=== PATIENT | male | born 1940 | race Caucasian/White ===

== ENCOUNTER 2023-11-18 08:05 | Inpatient (IN) | payer MEDICARE, OTHER ==
[~2023-11-18] VITALS: Ht 193 cm; Wt 62.6 kg
[~2023-11-18 08:05] MED LIST: PRED10TA PO
[2023-11-18] MEDS: methylPREDNISolone SOD SUCC 125 MG/2ML VIAL IV ONE (08:17)
[2023-11-18] MEDS ORDERED: methylPREDNISolone SOD SUCC 125 MG/2ML VIAL ONE (08:17)
--- NOTE | 2023-11-18 08:19 | NUR ---
IV RAC #18G S/L BLOOD COLLECTED AND SENT TO LAB
--- NOTE | 2023-11-18 08:20 | NUR ---
COVID AND INFLUENZA COLLECTED AND SENT TO LAB
--- NOTE | 2023-11-18 08:20 | NUR ---
RT AT PT'S BEDSIDE FOR BREATHING TX AND ABG
--- NOTE | 2023-11-18 08:29 | NUR ---
ADMISSION MOVE SHEET SUBMITTED
[2023-11-18] MEDS ORDERED: IPRATROPIUM NEB FS 0.5 MG/2.5 ML AMPUL.NEB ONE (08:33)
[2023-11-18] MEDS ORDERED: ALBUTEROL FS 2.5 MG/3 ML VIAL.NEB ONE (08:33)
[2023-11-18 08:46] LABS: BASOPHILS % (AUTO) 0.1 % (0.0-2.0); EOSINOPHILS % (AUTO) 0.2 % (0.0-6.0); HEMATOCRIT 30 % (39-51); HEMOGLOBIN 9.9 g/dL (13.5-17.5); LYMPHOCYTES # (AUTO) 0.6 K/uL (0.8-4.8); LYMPHOCYTES % (AUTO) 6.8 % (20.0-44.0); MEAN CORPUSCULAR HEMOGLOBIN 30 PG (26.0-33.0); MEAN CORPUSCULAR HGB CONC 33 g/dl (31.0-36.0); MEAN CORPUSCULAR VOLUME 89 fL (80-96); MONOCYTES # (AUTO) 0.3 K/uL (0.1-1.30); MONOCYTES % (AUTO) 3.9 % (2.0-12.0); NEUTROPHILS # (AUTO) 7.5 K/uL (1.8-8.9); PLATELET COUNT (AUTO) 215 K/uL (150-450); RED BLOOD CELL COUNT(AUTO) 3.36 MIL/uL (4.5-6.0); RED CELL DISTRIBUTION WIDTH 16.2 % (11.5-15.0); WHITE BLOOD COUNT (AUTO) 8.4 K/uL (4.3-11.0)
--- NOTE | 2023-11-18 09:08 | NUR ---
called nurse sup for bed assignment
[2023-11-18 09:09] LABS: CALCIUM, SERUM 7.8 mg/dL (8.5-10.1); CARBON DIOXIDE 30 mmol/L (21-32); CHLORIDE 105 mmol/L (98-107); CREATININE 0.8 mg/dL (0.6-1.3); GLUCOSE 121 mg/dL (74-106); POTASSIUM 4.1 mmol/L (3.5-5.1); SODIUM SERUM 140 mmol/L (136-145); UREA NITROGEN, BLOOD 19 mg/dL (7-18)
[2023-11-18] MEDS: IPRATROPIUM NEB FS 0.5 MG/2.5 ML AMPUL.NEB NEB ONE (09:10)
[2023-11-18] MEDS: ALBUTEROL FS 2.5 MG/3 ML VIAL.NEB CONTNEB ONE (09:10)
[2023-11-18 09:14] LABS: ALANINE AMINOTRANSFERASE 87 U/L (12-78); ALBUMIN 2.5 g/dL (3.4-5.0); ALKALINE PHOSPHATASE 94 U/L (46-116); ASPARTATE AMINOTRANSFERASE 34 U/L (15-37); BILIRUBIN,DIRECT 0.5 mg/dL (0.0-0.2); BILIRUBIN,TOTAL 1.4 mg/dL (0.2-1.0); TOTAL PROTEIN, SERUM 5.4 g/dL (6.4-8.2)
--- NOTE | 2023-11-18 09:35 | NUR ---
Lab called, pt is COVID positive. aware
[2023-11-18 10:02] LABS: ABG BASE EXCESS -1.2 mmol/L (-2.0-2.0); ABG OXYGEN SATURATION 82.6 % (92.0-98.5); ABG PCO2 33.4 mmHg (35.0-45.0); ABG PH 7.444 (7.340-7.440); ABG PO2 48.4 mmHg (75.0-100.0); ABG TOTAL HEMOGLOBIN 10.2 G/dL (14.0-18.0); COHb 0.3 % (0.5-1.5); MetHb 0.3 % (0.0-1.5); O2Hb 82.1 % (94.0-97.0); SITE, ABG Right Radial; VENT MODE, BG ROOM AIR
[2023-11-18] MEDS ORDERED: CEFTRIAXONE 1GM BAG (ER ONLY) 50 ML IV ONE (10:05)
[2023-11-18] MEDS: CEFTRIAXONE 1GM BAG (ER ONLY) 50 ML IV ONE (10:07)
[2023-11-18] MEDS: AZITHROMYCIN 500 MG in IV D5W 250 ML IV ONE (10:15)
[2023-11-18] MEDS ORDERED: POVI3780 TP (10:16)
[2023-11-18] MEDS ORDERED: NITR0.4T48 SL (10:16)
[2023-11-18] MEDS ORDERED: IPRA3AMP23 IH (10:16)
[2023-11-18] MEDS ORDERED: ONDA4TAB5 PO (10:16)
[2023-11-18] MEDS ORDERED: RIVA10TA PO (10:16)
[2023-11-18] MEDS ORDERED: CLOP75TA15 PO (10:16)
[2023-11-18] MEDS ORDERED: ZINC1CAP2 PO (10:16)
[2023-11-18] MEDS ORDERED: METO25TA4 PO (10:16)
[2023-11-18] MEDS ORDERED: ACET325T53 PO ×2 (10:16)
[2023-11-18] MEDS ORDERED: MAGN400O6 PO (10:16)
[2023-11-18] MEDS ORDERED: TRAZ-182 PO (10:16)
[2023-11-18] MEDS ORDERED: COLL30OI TP (10:16)
[2023-11-18] MEDS ORDERED: POLY17PO4 PO (10:16)
[2023-11-18] MEDS ORDERED: LEVA1.2524 IH (10:16)
[2023-11-18] MEDS ORDERED: BISA10SU11 RC (10:16)
[2023-11-18] MEDS ORDERED: ASCO-352 PO (10:16)
[2023-11-18] MEDS ORDERED: FLUT1BLS6 IH (10:16)
[2023-11-18] MEDS ORDERED: MULT-213 PO (10:16)
[2023-11-18] MEDS ORDERED: GUAI5LIQ10 PO (10:16)
[2023-11-18] MEDS ORDERED: TAMS-12 PO (10:16)
[2023-11-18] MEDS ORDERED: DILT-1 PO (10:16)
[2023-11-18] MEDS ORDERED: ASPI-1420 PO (10:16)
[2023-11-18] MEDS ORDERED: ATOR40TA PO (10:16)
--- NOTE | 2023-11-18 10:30 | NUR ---
STARTED ROCEPHIN AT 1007, STOP TIME 1037
--- NOTE | 2023-11-18 10:49 | NUR ---
BED 107; ADMITTING AWARE
--- NOTE | 2023-11-18 11:10 | NUR ---
REPORT GIVEN TO FORREST FUNES
--- NOTE | 2023-11-18 12:01 | NUR ---
REHABILITATION INSPECTOR NOTES RECEIVED PT FROM E.R. STAFF VIA RENE, PT IS AWAKE, ALERT AND ORIENTED, ABLE TO MAKE NEEDS KNOWN, PLACED ON O2 AT 5LPM VIA N/C, WITH O2 SAT OF 92%, NO COMPLAINT OF PAIN, ASSISTED TO BED, MADE COMFORTABLE, ROOM SET UP ORIENTATION PROVIDED TO PT, VERBALIZED UNDERSTANDING, ISOLATION PRECAUTIONS OBSERVED, NOTED WITH PRODUCTIVE COUGH, KEPT HOB ELEVATED, DENIES SOB AT THIS TIME, KEPT AUTOMATIC STEEL TIE ADJUSTER BED, AWAITING FURTER ORDERS, VITALS TAKEN AND RECORDED.
[2023-11-18 12:03] VITALS: BP 110/81; TEMP 98.4; O2SAT 92
--- NOTE | 2023-11-18 12:49 | NUR ---
DOUGHNUT MACHINE OPERATOR NOTES PT REFUSED SKIN ASSESSMENT AND PHOTOS, PT HAS POLST WITH DNR/DNI, PT STATES THAT IS HIS WISHES, DR. GILLIAM INFORMED, CODE STATUS ORDERED, PT IS AFIB WITH OCCASIONAL PVC'S ON THE TELE MONITOR.
[2023-11-18] MEDS ORDERED: TRAZODONE 50 MG TABLET PO PRN (15:30)
[2023-11-18] MEDS ORDERED: ONDANSETRON HCL/PF 4 MG/2 ML VIAL IVP PRN (15:30)
[2023-11-18] MEDS: FUROSEMIDE 40 MG/4 ML VIAL IV SCH (17:20)
[2023-11-18] MEDS: dexaMETHasone SOD PHOSPHATE 10 MG/ML VIAL IV SCH (17:20)
[2023-11-18] MEDS: LEVOFLOXACIN 750 MG /D5W 150ML 150 ML IV SCH (17:21)
[2023-11-18] MEDS: METOPROLOL SUCCINATE 25 MG TAB.SR.24H PO SCH (17:21)
[2023-11-18] MEDS: RIVAROXABAN 10 MG TABLET PO SCH (17:22)
[2023-11-18] MEDS: AZITHROMYCIN 250 MG TABLET PO SCH (18:02)
[2023-11-18] MEDS: LEVALBUTEROL HCL NEB 1.25 MG/0.5 ML VIAL.NEB IH SCH (19:30)
[2023-11-18] MEDS: IPRATROPIUM NEB FS 0.5 MG/2.5 ML AMPUL.NEB NEB SCH (19:30)
--- NOTE | 2023-11-18 20:00 | NUR ---
RN OPENING NOTE RECEIVED PT AWAKE IN BED, A/O X3. ABLE TO VERBALIZED HIS NEEDS. ON O2 VIA NC 3LPM, WITH O2 SAT OF 96%, NO COMPLAINT OF PAIN, CONTINUE ISOLATION PRECAUTIONS. NOTED WITH PRODUCTIVE COUGH, KEPT HOB ELEVATED, NO RESPIRATORY DISTRESS NOTED, KEPT BUSINESS RULES DEVELOPER BED. SAFETY MEASURES ARE IMPLEMENTED PER UNIT PROTOCOL. WILL CONTINUE PLAN OF CARE.
--- NOTE | 2023-11-18 20:18 | NUR ---
RT NOTE TX NOT GIVEN DUE TO POSITIVE PCR RESULTS. NO SOB NOTED AT THIS TIME. RN NOTIFIED.
[2023-11-18] MEDS: REMDESIVIR (CHARGED) 200 MG, *LOADING DOSE 1 EA in IV NS 0.9% 210 ML IV ONE (21:01)
[2023-11-18] MEDS: ATORVASTATIN 40 MG TABLET PO SCH (21:04)
--- NOTE | 2023-11-19 | NUR ---
TEST SKEIN WINDER NOTE PATIENT BP CHECKED 3X 86/53, 83/59 AND 80/59 O2 SAT 96% REPORTED TO HALIE KASPER WITH ORDERS OF IVF NS 500CC BOLUS X 1, ORDERS MADE AND CARRIED OUT.
[2023-11-19] MEDS: IV NS 0.9% 500 ML IV ONE (01:57)
[2023-11-19 05:52] VITALS: BP 94/55; TEMP 97.5; O2SAT 96
--- NOTE | 2023-11-19 06:53 | NUR ---
RN CLOSING NOTE PT. IN BED, A/O X3.ABLE TO VERBALIZED HIS NEEDS. ON O2 VIA NC 3LPM, WITH O2 SAT OF 96%, NO COMPLAINT OF PAIN, CONTINUE ISOLATION PRECAUTIONS.NOTED WITH PRODUCTIVE COUGH, KEPT HOB ELEVATED, NO RESPIRATORY DISTRESS NOTED, KEPT HOME HEALTH SPEECH THERAPIST BED. SAFETY MEASURES IMPLEMENTED PER UNIT PROTOCOL. ALL NEEDS ATTENDED. ALL DUE MEDS GIVEN PER DOCTORS ORDER. ENDORSED TO INCOMING RN FOR CONTINUE PLAN OF CARE.
--- NOTE | 2023-11-19 07:08 | NUR ---
RN OPENING NOTE RECEIVED PT IN BED, A/O X3. ABLE TO MAKE NEEDS KNOWN. ON 3LPM O2 VIA NC, TOLERATING WELL, NO S/S OF SOB NOTED. ON TELE MONITOR CURRENTLY READING AFIB, HR 69 BPM. IV ACCESS ON RAC 20G, PATENT AND INTACT, SL. PT CONTINUED ON COVID ISOLATION PRECAUTIONS. SAFETY MEASURES IMPLEMENTED, BED IN LOWEST LOCKED POSITION, BED ALARM ON, HOB ELEVATED, SIDE RAILS UP, CALL LIGHT WITHIN REACH. WILL CONTINUE PLAN OF CARE.
[2023-11-19 07:29] LABS: BASOPHILS % (AUTO) 0.2 % (0.0-2.0); HEMATOCRIT 24 % (39-51); HEMOGLOBIN 8.3 g/dL (13.5-17.5); LYMPHOCYTES # (AUTO) 0.3 K/uL (0.8-4.8); LYMPHOCYTES % (AUTO) 4.1 % (20.0-44.0); MEAN CORPUSCULAR HEMOGLOBIN 30 PG (26.0-33.0); MEAN CORPUSCULAR HGB CONC 35 g/dl (31.0-36.0); MEAN CORPUSCULAR VOLUME 88 fL (80-96); MONOCYTES # (AUTO) 0.2 K/uL (0.1-1.30); NEUTROPHILS # (AUTO) 6.1 K/uL (1.8-8.9); NEUTROPHILS % (AUTO) 92.7 % (43.0-81.0); PLATELET COUNT (AUTO) 164 K/uL (150-450); RED BLOOD CELL COUNT(AUTO) 2.74 MIL/uL (4.5-6.0); RED CELL DISTRIBUTION WIDTH 16.4 % (11.5-15.0); WHITE BLOOD COUNT (AUTO) 6.6 K/uL (4.3-11.0)
[2023-11-19 07:42] LABS: INR 1.5 (0.91-1.10); PARTIAL THROMBOPLASTIN TIME 36.8 SEC (24.3-34.3); PROTHROMBIN TIME 15.5 SECS (9.2-11.1)
[2023-11-19 08:00] VITALS: BP 105/63; TEMP 97.3; O2SAT 97
[2023-11-19 08:02] LABS: ALBUMIN 2.2 g/dL (3.4-5.0); BILIRUBIN,DIRECT 0.4 mg/dL (0.0-0.2); BILIRUBIN,TOTAL 1.1 mg/dL (0.2-1.0); CALCIUM, SERUM 7.6 mg/dL (8.5-10.1); CARBON DIOXIDE 29 mmol/L (21-32); CHLORIDE 104 mmol/L (98-107); CREATININE 0.9 mg/dL (0.6-1.3); GLUCOSE 93 mg/dL (74-106); MAGNESIUM 1.8 mg/dL (1.8-2.4); PHOSPHORUS 3.2 mg/dL (2.5-4.9); POTASSIUM 3.2 mmol/L (3.5-5.1); SODIUM SERUM 141 mmol/L (136-145); TOTAL PROTEIN, SERUM 4.8 g/dL (6.4-8.2); UREA NITROGEN, BLOOD 19 mg/dL (7-18)
[2023-11-19] MEDS: ASPIRIN EC 81 MG TABLET.DR PO SCH (08:44)
[2023-11-19] MEDS: ZINC SULFATE 220 MG CAPSULE PO SCH (08:44)
[2023-11-19] MEDS: ASCORBIC ACID 500 MG TABLET PO SCH (08:44)
[2023-11-19] MEDS: TAMSULOSIN 0.4 MG CAP.SR.24H PO SCH (08:44)
[2023-11-19] MEDS: CLOPIDOGREL BISULFATE 75 MG TABLET PO SCH (08:44)
[2023-11-19] MEDS: MULTIVITAMIN/LUTEIN/MINERALS 1 TAB PO SCH (08:44)
[2023-11-19] MEDS: DILTIAZEM HCL CD 120 MG PO SCH (08:45)
[2023-11-19] MEDS: THERAHONEY GEL 1.5 OZ TUBE TP SCH (08:45)
[2023-11-19] MEDS ORDERED: Medication Not On Formulary EA (Fluticasone/Umeclidin/Vilanter (Trelegy Ellipta 100-62.5 IH SCH (09:00)
[2023-11-19] MEDS: POTASSIUM CL. PREMIX PERIPHER. 50 ML IV SCH (10:55)
[2023-11-19 12:00] VITALS: BP 104/64; TEMP 97.5; O2SAT 96
[2023-11-19] MEDS: ENSURE ENLIVE CHOC 237 ML CAN PO SCH (12:12)
[2023-11-19] MEDS: IPRATROPIUM BROMIDE 14 GM INHALER (or 12.9 GM) IH SCH (14:39)
[2023-11-19 16:00] VITALS: BP 106/66; TEMP 97.7; O2SAT 98
[2023-11-19] MEDS: CEFTRIAXONE 2 G in IV D5W 100 ML IV SCH (16:24)
[2023-11-19] MEDS ORDERED: LEVOFLOXACIN 500 MG /D5W 100ML 500 MG in PREMIX 1 EA IV SCH (17:00)
--- NOTE | 2023-11-19 17:00 | NUR ---
RN NOTE PT REFUSED TO BE CLEANED.
[2023-11-19] MEDS ORDERED: LEVOFLOXACIN 250 MG /D5W 50 ML 250 MG in PREMIX 1 EA IV SCH (18:00)
--- NOTE | 2023-11-19 18:42 | NUR ---
RN CLOSING NOTES PT IN BED, A/O X3. ABLE TO MAKE NEEDS KNOWN. ON 3LPM O2 VIA NC, TOLERATING WELL, NO S/S OF SOB NOTED. ON TELE MONITOR CURRENTLY READING AFIB, HR 98 BPM. IV ACCESS ON RAC 20G, PATENT AND INTACT, SL. PT CONTINUED ON COVID ISOLATION PRECAUTIONS. SAFETY MEASURES MAINTAINED, BED IN LOWEST LOCKED POSITION, BED ALARM ON, HOB ELEVATED, SIDE RAILS UP, CALL LIGHT WITHIN REACH. ALL MEDS GIVEN ORDERED, ALL NEEDS ATTENDED TOO. WILL ENDORSE TO ONCOMING SHIFT FOR BABS.
[2023-11-19 20:00] VITALS: BP 94/64; TEMP 97; O2SAT 99
--- NOTE | 2023-11-19 20:02 | NUR ---
CIGAR PATCHER OPENING NOTES RECEIVED PT IN BED, A/O X3. ABLE TO VERBALIZED HIS NEEDS. ON 3LPM O2 VIA NC, TOLERATING WELL, NO RESPIRATORY DISTRESS NOTED. ON TELE MONITOR CURRENTLY READING AFIB, HR 90'S BPM. IV ACCESS ON RAC 20G, PATENT AND INTACT, SL. PT CONTINUED ON COVID ISOLATION PRECAUTIONS. TRY TO CONVINCE PT. ON TAKING PHOTOS ON AFFECTED AREAS AND BE ABLE TO REFER TO WOUND CARE CONSULT, ONCE DONE. SAFETY MEASURES IMPLEMENTED PER UNIT PROTOCOL.WILL CONTINUE PLAN OF CARE
--- NOTE | 2023-11-19 20:18 | NUR ---
Scheduled Neb tx not given at this time due to postive Covid PCR result. RN aware
[2023-11-19] MEDS: REMDESIVIR (CHARGED) 100 MG in IV NS 0.9% 80 ML IV SCH (20:51)
[2023-11-20] VITALS: BP 98/61; TEMP 97.7; O2SAT 96
[2023-11-20 04:00] VITALS: BP 104/72; TEMP 97.3; O2SAT 98
[2023-11-20 07:02] LABS: HEMATOCRIT 26 % (39-51); LYMPHOCYTES # (AUTO) 0.7 K/uL (0.8-4.8); LYMPHOCYTES % (AUTO) 6.1 % (20.0-44.0); MEAN CORPUSCULAR HEMOGLOBIN 31 PG (26.0-33.0); MEAN CORPUSCULAR HGB CONC 35 g/dl (31.0-36.0); MEAN CORPUSCULAR VOLUME 89 fL (80-96); MONOCYTES # (AUTO) 0.4 K/uL (0.1-1.30); MONOCYTES % (AUTO) 3.9 % (2.0-12.0); NEUTROPHILS # (AUTO) 9.5 K/uL (1.8-8.9); PLATELET COUNT (AUTO) 171 K/uL (150-450); RED BLOOD CELL COUNT(AUTO) 2.94 MIL/uL (4.5-6.0); RED CELL DISTRIBUTION WIDTH 16.6 % (11.5-15.0); WHITE BLOOD COUNT (AUTO) 10.6 K/uL (4.3-11.0)
[2023-11-20 07:30] LABS: ALANINE AMINOTRANSFERASE 90 U/L (12-78); ALBUMIN 2.3 g/dL (3.4-5.0); ALKALINE PHOSPHATASE 85 U/L (46-116); ASPARTATE AMINOTRANSFERASE 44 U/L (15-37); BILIRUBIN,DIRECT 0.4 mg/dL (0.0-0.2); BILIRUBIN,TOTAL 0.9 mg/dL (0.2-1.0); CALCIUM, SERUM 7.9 mg/dL (8.5-10.1); CARBON DIOXIDE 32 mmol/L (21-32); CHLORIDE 104 mmol/L (98-107); CREATININE 0.9 mg/dL (0.6-1.3); GLUCOSE 95 mg/dL (74-106); POTASSIUM 3.6 mmol/L (3.5-5.1); SODIUM SERUM 140 mmol/L (136-145); UREA NITROGEN, BLOOD 23 mg/dL (7-18)
[2023-11-20 07:33] LABS: INR 1.51 (0.91-1.10); PARTIAL THROMBOPLASTIN TIME 36.6 SEC (24.3-34.3); PROTHROMBIN TIME 15.6 SECS (9.2-11.1)
--- NOTE | 2023-11-20 07:35 | NUR ---
RN NOTE REPORTED TO COMMERCIAL LINES ACCOUNT MANAGER CONTRETAS PT.COUGH OUT BLOOD 2CM. PER AMBROSE MONITOR VITAL SIGNS.
--- NOTE | 2023-11-20 07:35 | NUR ---
RN CLOSING NOTES RECEIVED PT IN BED, A/O X3. ABLE TO VERBALIZED HIS NEEDS. ON 3LPM O2 VIA NC, TOLERATING WELL, NO RESPIRATORY DISTRESS NOTED. ON TELE MONITOR CURRENTLY READING AFIB, HR 90'S BPM. IV ACCESS ON RAC 20G, PATENT AND INTACT, SL. PT CONTINUED ON COVID ISOLATION PRECAUTIONS. TRY TO CONVINCE PT. ON TAKING PHOTOS ON AFFECTED AREAS AND ABLE TO CONSULT WOUND CARE , ONCE DONE. SAFETY MEASURES IMPLEMENTED PER UNIT PROTOCOL.WILL CONTINUE PLAN OF CARE
--- NOTE | 2023-11-20 07:44 | NUR ---
BUS VAN DRIVER OPENING NOTE Recieved patient in bed with no s/s of distress noted, patient noted on isolation positive for covid. Patient noted with NC currently running at 6LPM with no SOB noted at this time or respiratory distress. Patient is currently on tele monitor A-fib. Patient ntoed with IV on right AC 20G SL flushing well. He currently has all of his needs met no further concerns noted at this time.
--- NOTE | 2023-11-20 07:44 | NUR ---
PAPER CUTTER OPENING NOTE Received patient in bed with no s/s of distress noted, patient noted on isolation positive for covid. Patient noted with NC currently running at 6LPM with no SOB noted at this time or respiratory distress. Patient is currently on tele monitor A-fib. Patient noted with IV on right AC 20G SL flushing well. He currently has all of his needs met no further concerns noted at this time.
--- NOTE | 2023-11-20 07:57 | NUR ---
WOUND CARE CONSULT: REVIEWED CHART, NURSING DOCUMENTATION AND PHOTOS WHICH INDICATE SACRAL SCARRING WHICH EXTENDS TO BUTTOCKS WITH OPEN AREAS, LEFT ARM SKIN TEAR AND DRY SCAB WELL REDNESS/DISCOLORATION TO HEELS, ALL PRESENT ON ADMISSION. DR PULIDO CALLED FOR SURGICAL WOUND CONSULT. DISCUSSED SKIN PROTECTION WITH NURSING STAFF. MD IN AGREEMENT WITH PLAN OF CARE.
[2023-11-20 08:00] VITALS: BP 106/66; TEMP 97.5; O2SAT 97
[2023-11-20] MEDS: THERAHONEY GEL 1.5 OZ TUBE TP SCH (09:41)
--- NOTE | 2023-11-20 11:00 | NUR ---
FISH SMOKER NOTE Patient noted to have CT done today, was informed by CT staff patient will be done later in the day today unsure of what time.
[2023-11-20 12:00] VITALS: BP 101/59; TEMP 97.5; O2SAT 99
[2023-11-20 16:00] VITALS: BP 102/62; TEMP 97.4; O2SAT 96
--- NOTE | 2023-11-20 19:32 | NUR ---
CORN GROWER NOTE Patient is in bed with zero s/s of distress noted, all orders noted and carried out. No further concerns noted at this time all needs ahve been met. Endorsed to RN
--- NOTE | 2023-11-20 19:35 | NUR ---
BUSINESS PROCESS MANAGER OPENING NOTE RECEIVED PATIENT AWAKE IN BED, ALERT/ORIENTED X 3, PT ABLE TO MAKE NEEDS KNOWN. PATIENT STABLE ON 5 LPM OF O2 VIA NASAL CANNULA, NO S/S OF DISTRESS OR SOB NOTED, BREATHING EVEN AND UNLABORED. IV ACCESS ON RAC #20G, CANNULA HALF WAY OUT, APPEARS INFILTRATED, REDNESS ON SURROUNDING SKIN, REMOVED & PLACED ICE PACK, WILL INSERT NEW IV. PATIENT ON AIRBORNE PRECAUTIONS FOR COVID. SAFETY MEASURES IN PLACE: CALL LIGHT AND TABLE WITHIN REACH, SIDE RAILS UP X 3, BED LOCKED IN LOWEST POSITION, HOB ELEVATED, BED ALARM ON. WILL CONTINUE PLAN OF CARE
[2023-11-20 20:00] VITALS: BP 93/60; TEMP 97.5; O2SAT 96
--- NOTE | 2023-11-20 20:00 | NUR ---
BOTTOM CEMENTER NOTE PATIENT NOTED WITH A LOT OF BLEEDING ON RAC WHERE IV WAS REMOVED, GAUZE AND PRESSURE APPLIED, WRAPPED WITH KERLIX, WILL CONTINUE TO MONITOR
[2023-11-21] VITALS (7 sets, daily range): BP systolic 92–120; BP diastolic 60–74; TEMP 97.5–97.8; O2SAT 92–100
--- NOTE | 2023-11-21 03:30 | NUR ---
TANBARK LABORER NOTE SPUTUM COLLECTED FOR CULTURE, CALLED LAB FOR PICKUP
--- NOTE | 2023-11-21 06:30 | NUR ---
OFFICE NURSE NOTE PATIENT REFUSED AM LABS, LAB WILL TRY AGAIN LATER
--- NOTE | 2023-11-21 06:54 | NUR ---
AGILE JAVA DEVELOPER CLOSING NOTE PATIENT SLEEPING IN BED, ALERT/ORIENTED X 3, PT ABLE TO MAKE NEEDS KNOWN. PATIENT STABLE ON 5 LPM OF O2 VIA NASAL CANNULA WITH HUMIDIFIER, NO S/S OF DISTRESS OR SOB NOTED, BREATHING EVEN AND UNLABORED. PT ON TELE MONITOR READING A. FIB CONTROLLED, HR: 66. IV ACCESS ON HELADOI #22G INTACT AND SALINE LOCKED. NO SIGNIFICANT CHANGES THIS SHIFT, MEDICATIONS GIVEN ORDERED, PT NEEDS MET. SPUTUM CULTURES COLLECTED. WOUND PHOTOS TAKEN AND PLACED IN CHART, WOUND CARE DONE THIS AM, BILATERAL FEET FLOATED WITH PILLOW. SAFETY MEASURES IN PLACE: CALL LIGHT AND TABLE WITHIN REACH, SIDE RAILS UP X 3, BED LOCKED IN LOWEST POSITION, HOB ELEVATED, BED ALARM ON. WILL ENDORSE TO DAYSHIFT RN FOR CONTINUITY OF CARE
--- NOTE | 2023-11-21 07:30 | NUR ---
RN OPENING NOTE RECEIVED PATIENT AWAKE IN BED AND APPEARS COMFORTABLE, ALERT/ORIENTED X 3, PT ABLE TO MAKE NEEDS KNOWN. PATIENT STABLE ON 5 LPM OF O2 VIA NASAL CANNULA WITH HUMIDIFIER, NO S/S OF DISTRESS OR SOB NOTED, BREATHING EVEN AND UNLABORED. DENIES PAIN AT THIS TIME. PT ON TELE MONITOR READING A. FIB CONTROLLED, HR: 81. IV ACCESS ON HELADIO #22G INTACT AND SALINE LOCKED. SAFETY MEASURES IN PLACE: CALL LIGHT AND TABLE WITHIN REACH, SIDE RAILS UP X 3, BED LOCKED IN LOWEST POSITION, HOB ELEVATED, BED ALARM ON. WILL CONTINUE POC.
--- NOTE | 2023-11-21 08:55 | NUR ---
RN NOTE FELICIA NORRIS MADE AWARE OF FOLLOWING VITALS. BP; 118/67, HR OF 66 BPM. ADVISED TO CONTINUE TO ADMINISTER 25 MG OF METOPROLOL AND 120 MG OF DILTIAZEM. ADVISED TO RECHECK IN 2 HOURS. WILL CONTINUE POC.
--- NOTE | 2023-11-21 15:05 | NUR ---
RN NOTE PT LEFT UNIT VIA [facility] FOR SCHEDULED CT OF THE HEAD W/O CONTRAST. PT LEFT IN STABLE MEDICAL CONDITION. PT LEFT UNIT AT 1506.
--- NOTE | 2023-11-21 15:45 | NUR ---
RN NOTE PT RETURNED FROM SCHEDULED CT W/O CONTRAST. PT RETURNED MEDICALLY STABLE VIA GURNEY. RETURNED TO UNIT AT 1545. WILL CONTINUE POC
--- NOTE | 2023-11-21 18:11 | NUR ---
RN NOTE PT REPORTED TO THIS RN THAT HE HAS BLOOD TINGED SPUTUM. TAWANA CHE MADE AWARE. XARELTO HELD DUE TO BLOOD TINGED SPUTUM. WILL CONTINUE POC.
--- NOTE | 2023-11-21 18:30 | NUR ---
RN CLOSING NOTE PATIENT AWAKE IN BED AND APPEARS COMFORTABLE, ALERT/ORIENTED X 3, PT ABLE TO MAKE NEEDS KNOWN. PATIENT STABLE ON 4 LPM OF O2 VIA NASAL CANNULA WITH HUMIDIFIER, NO S/S OF DISTRESS OR SOB NOTED, BREATHING EVEN AND UNLABORED. DENIES PAIN AT THIS TIME. PT DOWNGRADED TO MED SURGE. IV ACCESS ON HELADIO #22G INTACT AND SALINE LOCKED. SAFETY MEASURES IN PLACE: CALL LIGHT AND TABLE WITHIN REACH, SIDE RAILS UP X 3, BED LOCKED IN LOWEST POSITION, HOB ELEVATED, BED ALARM ON. SCHEDULED MEDICATIONS ADMINSITERED. XARELTO HELD PER TAWANA ORDERS DUE TO BLOOD TINGED SPUTUM. WOUND CARE IMPLEMENTED. PT TURNED/REPOSITIONED PER PROTOCOL. ALL NEEDS ANTICIPATED/ATTENDED. WILL ENDORSE TO INCOMING RN FOR BABS.
--- NOTE | 2023-11-21 19:30 | NUR ---
RN MS OPENING NOTE RECEIVED PATIENT IN BED ASLEEP, EASILY AROUSE BY VERBAL/TACTILE STIMULI. ABLE TO MAKE NEEDS KNOWN. CURRENTLY ON 4 LPM O2 VIA NASAL CANNULA WITH HUMIDIFIER, NO S/S OF DISTRESS OR SOB NOTED, NONLABORED BREATHING NOTED. NO C/O PAIN AT THIS TIME. WITH IV ACCESS ON HELADIO #22G INTACT AND SALINE LOCKED. SAFETY MEASURES IN PLACE: CALL LIGHT AND TABLE WITHIN REACH, SIDE RAILS UP X 3, BED LOCKED IN LOWEST POSITION, HOB ELEVATED, BED ALARM ON. WILL CONTINUE PLAN OF CARE.
[2023-11-21] MEDS: ACETYLCYSTEINE 10% SOLN 400 MG/4 ML VIAL NEB SCH (23:27)
--- NOTE | 2023-11-22 04:30 | NUR ---
RN NOTES PATIENT REFUSED VS TO BE TAKEN. INFORMED PT OF THE BENEFITS OF TAKING VS, PT STILL REFUSED. CHARGE NURSE AWARE.
--- NOTE | 2023-11-22 06:56 | NUR ---
RN MS CLOSING NOTE PATIENT RESTING COMFORTABLY IN BED. AFEBRILE. TOLERATING 4 LPM O2 VIA NASAL CANNULA WITH HUMIDIFIER, NO S/S OF DISTRESS OR SOB NOTED, NONLABORED BREATHING NOTED. DENIES PAIN AT THIS TIME. INTACT IV ACCESS ON HELADIO #22G SALINE LOCKED. ALL DUE MEDS GIVEN ORDERED, TOLERATED WELL. KEPT BED LOCKED IN LOWEST POSITION, HOB ELEVATED, BED ALARM ON. CALL LIGHT AND TABLE WITHIN REACH, SIDE RAILS UP X 3, WILL ENDORSE TO INCOMING SHIFT RN.
[2023-11-22] MEDS: BUDESONIDE RESPULE INH 0.5 MG/2 ML AMPUL.NEB NEB SCH (07:05)
--- NOTE | 2023-11-22 07:30 | NUR ---
RN OPENING NOTE Received pt in bed awake, A/O X3 and able to make needs known. Continues on 02 @4lpm via n/c. Pt noted with productive cough. IV access to HELADIO #22g, SL. Isolation precautions implemented due to Covid-19. Safety measures in place. Bed in low and locked position. Call light in reach. Plan of care ongoing.
[2023-11-22 07:55] LABS: EOSINOPHILS # (AUTO) 0.1 K/uL (0.0-0.7); EOSINOPHILS % (AUTO) 0.9 % (0.0-6.0); HEMATOCRIT 24 % (39-51); HEMOGLOBIN 8.4 g/dL (13.5-17.5); LYMPHOCYTES # (AUTO) 0.6 K/uL (0.8-4.8); LYMPHOCYTES % (AUTO) 7.7 % (20.0-44.0); MEAN CORPUSCULAR HEMOGLOBIN 31 PG (26.0-33.0); MEAN CORPUSCULAR HGB CONC 35 g/dl (31.0-36.0); MEAN CORPUSCULAR VOLUME 90 fL (80-96); MONOCYTES # (AUTO) 0.3 K/uL (0.1-1.30); MONOCYTES % (AUTO) 3.5 % (2.0-12.0); NEUTROPHILS % (AUTO) 87.9 % (43.0-81.0); PLATELET COUNT (AUTO) 143 K/uL (150-450); RED BLOOD CELL COUNT(AUTO) 2.71 MIL/uL (4.5-6.0); RED CELL DISTRIBUTION WIDTH 18.1 % (11.5-15.0)
[2023-11-22 08:28] LABS: ALANINE AMINOTRANSFERASE 81 U/L (12-78); ALBUMIN 2.4 g/dL (3.4-5.0); ALKALINE PHOSPHATASE 99 U/L (46-116); ASPARTATE AMINOTRANSFERASE 26 U/L (15-37); BILIRUBIN,DIRECT 0.3 mg/dL (0.0-0.2); BILIRUBIN,TOTAL 0.8 mg/dL (0.2-1.0); CALCIUM, SERUM 7.8 mg/dL (8.5-10.1); CARBON DIOXIDE 28 mmol/L (21-32); CHLORIDE 103 mmol/L (98-107); CREATININE 0.8 mg/dL (0.6-1.3); GLUCOSE 84 mg/dL (74-106); POTASSIUM 3.5 mmol/L (3.5-5.1); SODIUM SERUM 139 mmol/L (136-145); TOTAL PROTEIN, SERUM 5.2 g/dL (6.4-8.2); UREA NITROGEN, BLOOD 24 mg/dL (7-18)
[2023-11-22 08:46] LABS: INR 1.25 (0.91-1.10); PARTIAL THROMBOPLASTIN TIME 30.7 SEC (24.3-34.3); PROTHROMBIN TIME 13.1 SECS (9.2-11.1)
[2023-11-22] MEDS: POTASSIUM CHLORIDE 20 MEQ TAB.PRT.SR PO SCH (10:23)
[2023-11-22] MEDS: FUROSEMIDE 40 MG/4 ML VIAL IV SCH (10:24)
[2023-11-22 12:00] VITALS: BP 102/72; TEMP 97.5; O2SAT 97
--- NOTE | 2023-11-22 18:59 | NUR ---
RN CLOSING NOTE Pt in bed awake, A/O X3 and able to make needs known. Continues on 02 @4lpm via n/c. All due meds administered and tolerated well. Isolation precautions implemented due to Covid-19. Safety measures in place. Bed in low and locked position. Call light in reach. Plan of care ongoing.
--- NOTE | 2023-11-22 19:25 | NUR ---
MS RN OPENING NOTE RECEIVED PT IN BED, A/O X 3. ON O2 VIA NC AT 4L, TOLERATING WELL. NO SIGNS OF DISTRESS NOTED. WITH IV ACCESS ON LEFT UPPER ARM G#22. ISOLATION PRECAUTION IMPLEMENTED DUE TO COVID-19. SAFETY MEASURES IMPLEMENTED: BED LOCKED AND IN LOWEST POSITION, BED ALARM ON. HOB ELEVATED, SIDE RAILS UP. CALL LIGHT AND TABLE WITHIN EASY REACH, WILL CONTINUE PLAN OF CARE.
--- NOTE | 2023-11-22 19:59 | NUR ---
RT NOTE TX NOT GIVEN DUE TO POSITIVE PCR RESULTS. NO SOB NOTED AT THIS TIME.
[2023-11-22 20:00] VITALS: BP 100/70; TEMP 97.8; O2SAT 100; O2SAT 96
[2023-11-23 04:00] VITALS: BP 101/74; TEMP 97.7; O2SAT 99
--- NOTE | 2023-11-23 06:39 | NUR ---
MS RN CLOSING NOTE PT IN BED, A/O X 3. ON O2 VIA NC AT 5L, TOLERATING WELL. NO SIGNS OF DISTRESS NOTED. WITH IV ACCESS ON LEFT UPPER ARM G#22. ON ISOLATION PRECAUTION DUE TO COVID-19. DUE MEDS GIVEN ORDERED. SAFETY MEASURES MAINTAINED: BED LOCKED AND IN LOWEST POSITION, BED ALARM ON, HOB ELEVATED, SIDE RAILS UP. CALL LIGHT AND TABLE WITHIN EASY REACH, WILL ENDORSE TO AM SHIFT NURSE FOR BABS.
--- NOTE | 2023-11-23 07:24 | NUR ---
RN OPENING NOTE RECEIVED PATIENT IN BED, A/O X3. ON O2 VIA NC AT 5L WITH HUMIDIFIER, TOLERATING WELL. NO SOB. NO SIGNS OF DISTRESS NOTED. WITH IV ACCESS ON LEFT UPPER ARM #22G, INTACT AND PATENT, SALINE LOCKED. ISOLATION PRECAUTION IMPLEMENTED DUE TO COVID-19. SAFETY MEASURES IN PLACE: BED LOCKED AND IN LOWEST POSITION, BED ALARM ON. HOB ELEVATED, SIDE RAILS UP. CALL LIGHT AND TABLE WITHIN EASY REACH, PLAN OF CARE ONGOING.
[2023-11-23 08:00] VITALS: BP 113/65; TEMP 97.5; O2SAT 99
[2023-11-23 08:44] LABS: HEMATOCRIT 22 % (39-51); HEMOGLOBIN 7.7 g/dL (13.5-17.5); LYMPHOCYTES # (AUTO) 0.3 K/uL (0.8-4.8); LYMPHOCYTES % (AUTO) 5.8 % (20.0-44.0); MEAN CORPUSCULAR HEMOGLOBIN 31 PG (26.0-33.0); MEAN CORPUSCULAR HGB CONC 35 g/dl (31.0-36.0); MEAN CORPUSCULAR VOLUME 89 fL (80-96); MONOCYTES # (AUTO) 0.2 K/uL (0.1-1.30); MONOCYTES % (AUTO) 4.2 % (2.0-12.0); NEUTROPHILS # (AUTO) 4.9 K/uL (1.8-8.9); PLATELET COUNT (AUTO) 116 K/uL (150-450); RED CELL DISTRIBUTION WIDTH 18.1 % (11.5-15.0); WHITE BLOOD COUNT (AUTO) 5.4 K/uL (4.3-11.0)
[2023-11-23 08:49] LABS: INR 1.93 (0.91-1.10); PARTIAL THROMBOPLASTIN TIME 46.1 SEC (24.3-34.3); PROTHROMBIN TIME 19.6 SECS (9.2-11.1)
[2023-11-23 08:57] LABS: ALANINE AMINOTRANSFERASE 62 U/L (12-78); ALBUMIN 2.3 g/dL (3.4-5.0); ALKALINE PHOSPHATASE 96 U/L (46-116); ASPARTATE AMINOTRANSFERASE 24 U/L (15-37); CALCIUM, SERUM 7.9 mg/dL (8.5-10.1); CARBON DIOXIDE 35 mmol/L (21-32); CHLORIDE 103 mmol/L (98-107); CREATININE 0.9 mg/dL (0.6-1.3); GLUCOSE 88 mg/dL (74-106); PHOSPHORUS 3.5 mg/dL (2.5-4.9); POTASSIUM 3.4 mmol/L (3.5-5.1); SODIUM SERUM 141 mmol/L (136-145); TOTAL PROTEIN, SERUM 4.7 g/dL (6.4-8.2); UREA NITROGEN, BLOOD 28 mg/dL (7-18)
[2023-11-23] MEDS: POTASSIUM CHLORIDE 20 MEQ TAB.PRT.SR PO SCH (10:53)
[2023-11-23 16:00] VITALS: BP 109/60; TEMP 97.5; O2SAT 98
--- NOTE | 2023-11-23 18:49 | NUR ---
RN CLOSING NOTE PATIENT IS IN BED, A/O X3. ON O2 VIA NC AT 3L WITH HUMIDIFIER, TOLERATING WELL. NO SOB. NO SIGNS OF DISTRESS NOTED AT THIS TIME. WITH IV ACCESS ON LEFT UPPER ARM #22G, INTACT AND PATENT, SALINE LOCKED. ISOLATION PRECAUTION IMPLEMENTED DUE TO COVID-19. DUE MEDS GIVEN. CARE RENDERED. NEEDS ATTENDED. SAFETY MEASURES MAINTAINED: BED LOCKED AND IN LOWEST POSITION, BED ALARM ON. HOB ELEVATED, SIDE RAILS UP. CALL LIGHT AND TABLE WITHIN EASY REACH. WILL ENDORSE TO AIR LIFT OPERATOR NURSE FOR CONTINUITY OF CARE.
--- NOTE | 2023-11-23 19:30 | NUR ---
RN OPENING NOTE RECEIVED PT IN BED. A/O X3. NO DISTRESS AND DISCOMFORT NOTED.ON 3L O2 VIA NC. NO SOB NOTED. ON COVID 19 PRECAUTIONS. IV ACCESS HELADIO 22G,SL. ALL SAFETY PRECAUTIONS IN PLACE: BED LOCKED AND IN LOWEST POSITION, SIDE RAILS UP X3, CALL LIGHT AND TABLE WITHIN REACH. WILL CONTINUE PLAN OF CARE.
[2023-11-23 20:00] VITALS: BP 90/53; TEMP 97.7; O2SAT 99
[2023-11-23 20:39] VITALS: O2SAT 97
--- NOTE | 2023-11-23 20:39 | NUR ---
RT NOTE TX NOT GIVEN DUE TO POSITIVE PCR RESULTS. NO SOB NOTED
[2023-11-24 04:00] VITALS: BP 96/59; TEMP 97.5; O2SAT 97
[2023-11-24 06:00] VITALS: BP 96/59; TEMP 97.5; O2SAT 97
--- NOTE | 2023-11-24 06:47 | NUR ---
RN CLOSING NOTE PT IN BED. A/O X3. NO DISTRESS AND DISCOMFORT NOTED.ON 3L O2 WITH HUMIDIFIER VIA NC. NO SOB NOTED. ON COVID 19 PRECAUTIONS. IV ACCESS HELADIO 22G,SL. 620 ML URINE OUTPUT.PT USES URINAL. BED LOCKED AND IN LOWEST POSITION, SIDE RAILS UP X3, CALL LIGHT AND TABLE WITHIN REACH. WILL ENDORSE TO NEXT SHIFT NURSE FOR BABS.
--- NOTE | 2023-11-24 07:03 | NUR ---
RT' PER [facility] POLICY INHALATION HHN TXS NOT GIVEN FOR POSITIVE PCR RESULTS. NO SOB NOTED.
--- NOTE | 2023-11-24 07:20 | NUR ---
SUPERINTENDENT TERMINAL OPENING NOTES Received patient asleep in bed. AOX3 with no complaints of pain or discomfort at this time. Pt is on isolation for COVID and is on 3L NC with humidifier and tolerating it well. IV access on HELADIO 22G patent and intact. HOB elevated to pts comfort. Siderails up at all times x3. Bed locked and at its lowest height for safety. Call light within reach. Care is ongoing.
[2023-11-24 08:57] LABS: CALCIUM, SERUM 8.4 mg/dL (8.5-10.1); CARBON DIOXIDE 33 mmol/L (21-32); CHLORIDE 103 mmol/L (98-107); GLUCOSE 130 mg/dL (74-106); SODIUM SERUM 141 mmol/L (136-145); UREA NITROGEN, BLOOD 38 mg/dL (7-18)
[2023-11-24] MEDS ORDERED: DEXA4TAB PO (11:29)
[2023-11-24 16:00] VITALS: BP 109/65; TEMP 97.9; O2SAT 96
--- NOTE | 2023-11-24 18:48 | NUR ---
HANDBAG OPERATOR CLOSING NOTES All due meds and tx given as ordered. Pt tolerated everything well. All needs attended to. HOB elevated to pts comfort. Siderails up at all times x3. Bed locked and at its lowest height for safety. Call light within reach. Will endorse to oncoming nurse.
--- NOTE | 2023-11-24 19:30 | NUR ---
RN OPENING NOTE RECEIVED PT IN BED. A/O X3. NO DISTRESS AND DISCOMFORT NOTED. ON 3L O2 VIA NC, TOLERATING WELL. NO SOB NOTED. HOB ELEVATED. IV ACCESS HELADIO 22G, INTACT. ALL SAFETY PRECAUTIONS IN PLACE: BED LOCKED AND IN LOWEST POSITION, SIDE RAILS UPX3, CALL LIGHT AND TABLE WITHIN REACH. WILL CONTINUE PLAN OF CARE.
[2023-11-24 20:00] VITALS: BP 124/51; TEMP 97.5; O2SAT 98
[2023-11-25] VITALS (23 sets, daily range): BP systolic 81–153; BP diastolic 52–96; TEMP 97.6–97.8; O2SAT 93–100
--- NOTE | 2023-11-25 06:48 | NUR ---
RN CLOSING NOTE PT IN BED. A/O X3. NO DISTRESS AND DISCOMFORT NOTED. ON 3L O2 VIA NC, TOLERATING WELL. NO SOB NOTED. HOB ELEVATED. IV ACCESS HELADIO 22G, INTACT. BED LOCKED AND IN LOWEST POSITION, SIDE RAILS UPX3, CALL LIGHT AND TABLE WITHIN REACH. WILL ENDORSE TO NEXT SHIFT NURSE FOR BABS.
--- NOTE | 2023-11-25 07:12 | NUR ---
CLINICAL QUALITY RN OPENING NOTES Received patient awake in bed. AOX3 with no complaints of pain or discomfort at this time. Pt is on isolation for COVID and is on 3L NC with humidifier and tolerating it well. IV access on HELADIO 22G patent and intact. HOB elevated to pts comfort. Siderails up at all times x3. Bed locked and at its lowest height for safety. Call light within reach. Care is ongoing.
--- NOTE | 2023-11-25 09:07 | NUR ---
MANAGER COMMUNITY DEVELOPMENT NOTES Attempted to call [facility] and [facility] for report but no answer.
--- NOTE | 2023-11-25 09:16 | NUR ---
WOOD BUCKER NOTES Patient cleared for discharge back to [facility] rehab. Report given to MARIN Naranjo.
[2023-11-25 10:14] LABS: CALCIUM, SERUM 8.4 mg/dL (8.5-10.1); CARBON DIOXIDE 29 mmol/L (21-32); CHLORIDE 104 mmol/L (98-107); CREATININE 0.8 mg/dL (0.6-1.3); GLUCOSE 90 mg/dL (74-106); POTASSIUM 3.8 mmol/L (3.5-5.1); SODIUM SERUM 141 mmol/L (136-145); UREA NITROGEN, BLOOD 34 mg/dL (7-18)
[2023-11-25 10:15] LABS: HEMATOCRIT 22 % (39-51); HEMOGLOBIN 7.6 g/dL (13.5-17.5); LYMPHOCYTES # (AUTO) 0.4 K/uL (0.8-4.8); LYMPHOCYTES % (AUTO) 5.6 % (20.0-44.0); MEAN CORPUSCULAR HEMOGLOBIN 31 PG (26.0-33.0); MEAN CORPUSCULAR HGB CONC 34 g/dl (31.0-36.0); MEAN CORPUSCULAR VOLUME 91 fL (80-96); MONOCYTES # (AUTO) 0.3 K/uL (0.1-1.30); MONOCYTES % (AUTO) 4.5 % (2.0-12.0); NEUTROPHILS # (AUTO) 6.6 K/uL (1.8-8.9); NEUTROPHILS % (AUTO) 89.9 % (43.0-81.0); PLATELET COUNT (AUTO) 108 K/uL (150-450); RED BLOOD CELL COUNT(AUTO) 2.45 MIL/uL (4.5-6.0); RED CELL DISTRIBUTION WIDTH 20.1 % (11.5-15.0); WHITE BLOOD COUNT (AUTO) 7.4 K/uL (4.3-11.0)
--- NOTE | 2023-11-25 11:49 | NUR ---
SPIRAL GEAR GENERATOR NOTES EMT at bedside and BP is 82/50. Dr. Quintana made aware with orders to give 500 ML NS bolus and 10mg midodrine one time and arrange for transportation to come back. Noted and carried out.
[2023-11-25] MEDS: MIDODRINE HCL (5MG) 5 MG TABLET PO ONE (12:06)
[2023-11-25] MEDS: IV NS 0.9% 500 ML IV ONE ×2 (12:06→17:05)
--- NOTE | 2023-11-25 12:47 | NUR ---
RT PER [facility] POLICY INHALATION HHN TXS NOT GIVEN FOR POSITIVE PCR RESULTS. NO SOB NOTED.
--- NOTE | 2023-11-25 13:30 | NUR ---
STRATEGIC ADVISOR NOTES Patient blood pressure checked and is 97/62.
--- NOTE | 2023-11-25 16:54 | NUR ---
GOLF CADDIE NOTES Patient BP is 81/52. Dr. Quintana made aware with orders to cancel discharge and give 1x bolus of 500 NS and start patient on midodrine 10MG TID. If patient doesn't improve transfer patient to ICU for levophed. Noted and carried out.
[2023-11-25] MEDS: MIDODRINE HCL (5MG) 5 MG TABLET PO SCH (17:05)
--- NOTE | 2023-11-25 18:20 | NUR ---
MILEAGE CLERK NOTES Patient transferred to ICU per Dr. Quintana orders. Report given to MARIN Perez.
[2023-11-25] MEDS: NOREPINEPHRINE 8 MG in IV D5W 242 ML IV PRN (18:42)
--- NOTE | 2023-11-25 19:30 | NUR ---
POLE RIVER NOTES Received patient in bed from MARIN Perez day shift .Patient AAOX3.DX: Respiratory Failure,COVID 19,PNA. Respiration even and unlabored.O2 6LNC saturation 100%.Denies pain or sob.AFIB 80's-110's.Patient on Levophed gtt at 0.1 mcg for BP support and will titrate accordingly.Patient turned and repositioned to comfort off loading pressure points.Contact Isolation protocol observed.Care plan implemented.Continue monitoring.
[2023-11-25] MEDS: VANCOMYCIN 1.5 GM in IV D5W 500 ML IV ONE (20:01)
[2023-11-25] MEDS: CELLULOSE,OXIDIZED 1 EACH EACH MC STA (20:32)
--- NOTE | 2023-11-25 20:35 | NUR ---
SWITCHBOARD WIRE WORKER HELPER NOTES Noted patient has moderate bleeding from MIDLINE insertion site.Removed dressing applied surgicel per md's order and pressure dressing.Will monitor closely.
[2023-11-25] MEDS: IV NS 0.9% 250 ML IV PRN (21:07)
--- NOTE | 2023-11-25 22:00 | NUR ---
ASPHALT SURFACE HEATER OPERATOR NOTES Patient turned and repositioned to comfort.No further bleeding noted from WENDY Midline.
[2023-11-25] MEDS: ATORVASTATIN 40 MG TABLET ONE (22:03)
[2023-11-25] MEDS: CEFEPIME 2 GM in IV D5W 100 ML IV SCH (22:03)
[2023-11-25] MEDS: ALBUTEROL SULFATE 8 GM HFA.AER.AD IH SCH (23:02)
[2023-11-26] VITALS (104 sets, daily range): BP systolic 71–150; BP diastolic 41–104; TEMP 97.5–97.9; O2SAT 90–100
[2023-11-26 03:24] LABS: CALCIUM, SERUM 7.5 mg/dL (8.5-10.1); CARBON DIOXIDE 32 mmol/L (21-32); CHLORIDE 103 mmol/L (98-107); CREATININE 0.8 mg/dL (0.6-1.3); GLUCOSE 92 mg/dL (74-106); MAGNESIUM 1.7 mg/dL (1.8-2.4); PHOSPHORUS 2.8 mg/dL (2.5-4.9); SODIUM SERUM 136 mmol/L (136-145); UREA NITROGEN, BLOOD 30 mg/dL (7-18)
--- NOTE | 2023-11-26 06:53 | NUR ---
CLOSING NOTES Patient resting.AFIB controlled.Remains on low dose of Levophed gtt. No respiratory distress noted.All due medications administered. AM care done.Turned and repositioned.Will endorse to day shift for BABS.
[2023-11-26] MEDS: VANCOMYCIN 750 MG in IV D5W 250 ML IV SCH (07:45)
[2023-11-26] MEDS: dexaMETHasone SOD PHOSPHATE 10 MG/ML VIAL IV SCH (08:28)
[2023-11-26] MEDS: PHENYLEPHRINE 10 MG/ML VIAL IV ONE (09:30)
[2023-11-26] MEDS: PHENYLEPHRINE 50 MG in IV NS 0.9% 245 ML IV SCH (09:52)
[2023-11-26 10:23] LABS: BILIRUBIN,DIRECT 0.4 mg/dL (0.0-0.2); BILIRUBIN,TOTAL 1.1 mg/dL (0.2-1.0); TOTAL PROTEIN, SERUM 4.2 g/dL (6.4-8.2)
[2023-11-26] MEDS: MAGNESIUM OXIDE 400 MG TABLET PO ONE (10:47)
[2023-11-26] MEDS: Magnesium 1GM/D5W 100ML PREMIX 100 ML IV SCH (10:48)
[2023-11-26] MEDS: ALBUMIN 25% 25 GM in PREMIX 1 EA IV SCH (10:49)
[2023-11-26 14:19] LABS: BASOPHILS % (AUTO) 0.4 % (0.0-2.0); EOSINOPHILS # (AUTO) 0.1 K/uL (0.0-0.7); EOSINOPHILS % (AUTO) 1.2 % (0.0-6.0); LYMPHOCYTES # (AUTO) 0.7 K/uL (0.8-4.8); LYMPHOCYTES % (AUTO) 8.9 % (20.0-44.0); MEAN CORPUSCULAR HEMOGLOBIN 31 PG (26.0-33.0); MEAN CORPUSCULAR HGB CONC 34 g/dl (31.0-36.0); MEAN CORPUSCULAR VOLUME 93 fL (80-96); MONOCYTES # (AUTO) 0.3 K/uL (0.1-1.30); MONOCYTES % (AUTO) 4.1 % (2.0-12.0); NEUTROPHILS # (AUTO) 6.6 K/uL (1.8-8.9); NEUTROPHILS % (AUTO) 85.4 % (43.0-81.0); PLATELET COUNT (AUTO) 104 K/uL (150-450); RED BLOOD CELL COUNT(AUTO) 2.12 MIL/uL (4.5-6.0); RED CELL DISTRIBUTION WIDTH 21.7 % (11.5-15.0); WHITE BLOOD COUNT (AUTO) 7.7 K/uL (4.3-11.0)
[2023-11-26 14:43] LABS: HEMATOCRIT 20 % (39-51)
[2023-11-26 14:44] LABS: HEMOGLOBIN 6.6 g/dL (13.5-17.5)
--- NOTE | 2023-11-26 16:28 | NUR ---
H&H 6.6; CROSS AND MATCH IN PROCESS. DR RHODES AND DR DUARTE NOTIFIED. XARELTO D/C PER 'S FELICIA ORDER.
--- NOTE | 2023-11-26 17:24 | NUR ---
PT REQUESTED TO CHANGE CODE STATUS TO DNR/DNI. POLST SIGNED. DR RHODES NOTIFIED, ORDER PLACED.
[2023-11-26] MEDS: IV NS 0.9% 1,000 ML IV PRN (18:40)
--- NOTE | 2023-11-26 20:00 | NUR ---
RN/ICU-RECEIVED PT. FROM DAYSHIFT RN, AWAKE, ALERT, ORIENTED X3, VERBALIZING FEELING DEPRESSED, EMOTIONAL SUPPORT GIVEN TO PT. BREATHING SPONTANEOUSLY TO ROOM AIR W/ O2 SUPPORT 5L/NC, SATS.-93%, BP-86/55, HR-77/MIN.ATRIAL FIB. W/ CVR. ON RUI SYNEPHRINE DRIP AT 0.8 MCG/KG/MIN. WILL CONTINUE TO TITRATE ACCORDINGLY PER PROTOCOL TO KEEP SBP 90. U/O MODERATE YELLOW, CLEAR PER PURE WICK. NOTED LEFT ARM, PREVIOUS IV SITE/SKIN TEAR, W/ DRESSING SATURATED W/ BLOOD. SITE CLEANSED W/ NS, PAT DRY W/ 2X2, COVERED W/ TELFA, 4X4, KERLIX, PAPER TAPE.WILL CONTINUE TO MONITOR PER PROTOCOL. PT. ON ANTIPLATELET/ANTICOAGULANTS.TO RECEIVED 1 UNIT OF PRBC ONCE AVAILABLE.REFER TO SKIN PROBLEM ASSESSMENT AND WOUND PHOTO FOR SKIN ISSUES AND DETAILS.SACRAL WOUND INTACT W/ OPTIFOAM, NOT SEEN AT THIS TIME, WILL CONTINUE TO REPOSITION Q HR PT. CONDITION ALLOWS.CODE STATUS:DNR, DNI. AFEBRILE. NO S/S OF PAIN OR DISTRESS.RIGHT UPPER ARM MIDLINE INTACT. NEW IV LINE G 20 INSERTED X 1 STICK VIA RIGHT UPPER ARM. WILL USE FOR BLOOD TRANSFUSION.
[2023-11-26 20:46] LABS: ANISOCYTOSIS 1+; EOSINOPHILS % (MANUAL) 1 % (0-4); LYMPHOCYTES % (MANUAL) 10 % (16-48); MONOCYTES % (MANUAL) 7 % (0-11.0); NEUTROPHILS % (MANUAL) 82 (42-76); PLATELET ESTIMATE DECREASED
[2023-11-26 20:47] LABS: OVALOCYTES 1+
--- NOTE | 2023-11-26 21:15 | NUR ---
RN/ICU- HH- SINCE MORNING , WILL START TRANSFUSING 1 UNIT PRBC PER PROTOCOL.
--- NOTE | 2023-11-26 23:00 | NUR ---
RN/ICU-ONE UNIT PRBC TRANSFUSED, NO REACTION NOTED.
[2023-11-27] VITALS (104 sets, daily range): BP systolic 74–151; BP diastolic 43–106; TEMP 97.6–98.1; O2SAT 90–100
[2023-11-27 03:41] LABS: EOSINOPHILS # (AUTO) 0.2 K/uL (0.0-0.7); EOSINOPHILS % (AUTO) 3.7 % (0.0-6.0); HEMATOCRIT 21 % (39-51); HEMOGLOBIN 7.3 g/dL (13.5-17.5); LYMPHOCYTES # (AUTO) 0.4 K/uL (0.8-4.8); LYMPHOCYTES % (AUTO) 5.9 % (20.0-44.0); MEAN CORPUSCULAR HEMOGLOBIN 31 PG (26.0-33.0); MEAN CORPUSCULAR HGB CONC 35 g/dl (31.0-36.0); MEAN CORPUSCULAR VOLUME 91 fL (80-96); MONOCYTES # (AUTO) 0.3 K/uL (0.1-1.30); MONOCYTES % (AUTO) 4.7 % (2.0-12.0); NEUTROPHILS # (AUTO) 5.3 K/uL (1.8-8.9); NEUTROPHILS % (AUTO) 85.7 % (43.0-81.0); PLATELET COUNT (AUTO) 75 K/uL (150-450); RED BLOOD CELL COUNT(AUTO) 2.33 MIL/uL (4.5-6.0); RED CELL DISTRIBUTION WIDTH 19.5 % (11.5-15.0); WHITE BLOOD COUNT (AUTO) 6.1 K/uL (4.3-11.0)
[2023-11-27 03:53] LABS: CALCIUM, SERUM 7.5 mg/dL (8.5-10.1); CARBON DIOXIDE 29 mmol/L (21-32); CHLORIDE 103 mmol/L (98-107); CREATININE 0.8 mg/dL (0.6-1.3); GLUCOSE 80 mg/dL (74-106); MAGNESIUM 2.2 mg/dL (1.8-2.4); PHOSPHORUS 2.9 mg/dL (2.5-4.9); POTASSIUM 4.1 mmol/L (3.5-5.1); SODIUM SERUM 135 mmol/L (136-145); UREA NITROGEN, BLOOD 23 mg/dL (7-18)
[2023-11-27 05:43] LABS: BASOPHILS % (MANUAL) 0 % (0.0-2.0); EOSINOPHILS % (MANUAL) 2 % (0-4); LYMPHOCYTES % (MANUAL) 9 % (16-48); MONOCYTES % (MANUAL) 5 % (0-11.0); NEUTROPHILS % (MANUAL) 84 (42-76)
[2023-11-27 05:44] LABS: ANISOCYTOSIS 1+; PLATELET ESTIMATE DECREASED
--- NOTE | 2023-11-27 06:00 | NUR ---
RN/ICU- PT. ASLEEP , NO S/S OF DISTRESS. EKG ATRIAL FIB.W/CVR W/ OCCASIONAL UNIFOCAL PVCS, LATEST-132/65,REMAINS ON RUI DRIP AT 0.8 MCG/KG/MIN. NOTED TO HAVE SOME OOZING ON LEFT ARM DRESSING, SKIN TEAR SITE, REINFORCED W/ 4X4, KERLIX ROLL. WILL NOTIFY WOUND NURSE AND TAKE PICTURE . NO S/S OF PAIN OR DISTRESS.
--- NOTE | 2023-11-27 07:45 | NUR ---
PATIENT WOKE UP, DEMONSTRATING HOSTILE BEHAVIOR, TRYING TO KICK NURSES, TURNING UP SIDE TABLE, YELLING, TOOK OXYGEN NC OUT, PULLING LINES. NOTIFIED.
--- NOTE | 2023-11-27 08:10 | NUR ---
DR RHODES ORDER ZYPREXA 10MG IM Q8H PRN
[2023-11-27] MEDS: OLANZAPINE 10 MG VIAL IM PRN (08:55)
[2023-11-27] MEDS: CEFTAZIDIME 2 G in IV D5W 100 ML IV SCH (11:12)
[2023-11-27] MEDS: PANTOPRAZOLE 40 MG VIAL IV SCH (12:38)
--- NOTE | 2023-11-27 14:47 | NUR ---
Pt. refused to wear oxygen and refused hhn tx. Addendum: 11/27/23 at 1448 by SALAZAR NASH RT Amended: Links added.
[2023-11-27 15:49] LABS: D-DIMER 1.02 mg/L(FEU (0.17-0.50); INR 1.14 (0.91-1.10); PARTIAL THROMBOPLASTIN TIME 33.9 SEC (24.3-34.3)
[2023-11-27 16:20] LABS: C-REACTIVE PROTEIN 2.84 mg/dL (0.0-0.30); THYROID STIMULATING HORMONE 2.13 uIU/mL (0.358-3.74)
[2023-11-27 16:27] LABS: HEMOGLOBIN 8.6 g/dL (13.5-17.5)
[2023-11-27 16:34] LABS: RHEUMATOID FACTOR SCREEN NEGATIVE (NEGATIVE)
--- NOTE | 2023-11-27 19:40 | NUR ---
AVIATION PROJECT ENGINEER Opening Note Bedside report given by MARIN Green. Received patient in bed; awake, a/o x 3. On O2 5 lpm via NC; tolerating well saturating 97%. Breathing adequate and nonlabored. No c/o pain or discomfort. On vasopressor Neosynephrine drip 0.4 mg/kg/min for BP support; to titrate per protocol. Safety measures implemented: HOB elevated to >30 degrees, SR up x 3, bed in lowest locked position. Plan of care ongoing.
[2023-11-28] VITALS (48 sets, daily range): BP systolic 100–159; BP diastolic 66–115; TEMP 97.5–97.9; O2SAT 81–100
[2023-11-28 01:01] LABS: HEMOGLOBIN 7.4 g/dL (13.5-17.5)
[2023-11-28 04:41] LABS: HEMATOCRIT 22 % (39-51); HEMOGLOBIN 7.7 g/dL (13.5-17.5); LYMPHOCYTES # (AUTO) 0.2 K/uL (0.8-4.8); LYMPHOCYTES % (AUTO) 4.3 % (20.0-44.0); MEAN CORPUSCULAR HEMOGLOBIN 32 PG (26.0-33.0); MEAN CORPUSCULAR HGB CONC 35 g/dl (31.0-36.0); MEAN CORPUSCULAR VOLUME 91 fL (80-96); MONOCYTES # (AUTO) 0.1 K/uL (0.1-1.30); NEUTROPHILS # (AUTO) 4.3 K/uL (1.8-8.9); NEUTROPHILS % (AUTO) 92.7 % (43.0-81.0); PLATELET COUNT (AUTO) 71 K/uL (150-450); RED BLOOD CELL COUNT(AUTO) 2.44 MIL/uL (4.5-6.0); RED CELL DISTRIBUTION WIDTH 19.4 % (11.5-15.0); WHITE BLOOD COUNT (AUTO) 4.7 K/uL (4.3-11.0)
[2023-11-28 04:47] LABS: CALCIUM, SERUM 7.8 mg/dL (8.5-10.1); CARBON DIOXIDE 27 mmol/L (21-32); CHLORIDE 105 mmol/L (98-107); CREATININE 0.8 mg/dL (0.6-1.3); GLUCOSE 91 mg/dL (74-106); POTASSIUM 3.7 mmol/L (3.5-5.1); SODIUM SERUM 136 mmol/L (136-145); UREA NITROGEN, BLOOD 20 mg/dL (7-18)
[2023-11-28 05:05] LABS: D-DIMER 1.59 mg/L(FEU (0.17-0.50); INR 1.13 (0.91-1.10); PARTIAL THROMBOPLASTIN TIME 35.5 SEC (24.3-34.3); PROTHROMBIN TIME 11.9 SECS (9.2-11.1)
--- NOTE | 2023-11-28 06:41 | NUR ---
NURSE EPIDEMIOLOGIST Closing Note Patient in bed; awake, a/o x 3. On O2 5 lpm via NC; well tolerated. Afib controlled on the monitor. Breathing equal and unlabored. Denies pain or discomfort. Off pressors now. All due meds given as ordered. Turned and repositioned for comfort. Safety measures maintained. Endorsed to incoming nurse for ranjit.
[2023-11-28 08:09] LABS: HEPATITIS B SURFACE AB Non Reactive (.); IMMUNOGLOBULIN A, SERUM 165 mg/dL (61-437); IMMUNOGLOBULIN G, SERUM 430 mg/dL (603-1613); IMMUNOGLOBULIN M, SERUM 65 mg/dL (15-143)
[2023-11-28 10:10] LABS: FOLIC ACID 5.4 ng/mL (>3.0)
[2023-11-28 11:07] LABS: FREE LAMBDA LT CHAIN SERUM 20.6 mg/L (5.7-26.3); KAPPA/LAMBDA RATIO SERUM 1.12 (0.26-1.65)
[2023-11-28 11:44] LABS: ANISOCYTOSIS 1+; BAND % (MANUAL) 2 % (0.0-5.0); BASOPHILS % (MANUAL) 0 % (0.0-2.0); EOSINOPHILS % (MANUAL) 0 % (0-4); LYMPHOCYTES % (MANUAL) 9 % (16-48); MONOCYTES % (MANUAL) 4 % (0-11.0); NEUTROPHILS % (MANUAL) 85 (42-76); PLATELET ESTIMATE DECREASED
[2023-11-28 11:45] LABS: OVALOCYTES 1+
[2023-11-28 12:09] LABS: *ANA ANTI-CENTROMERE B AB <0.2 AI (0.0-0.9); *ANA ANTI-DNA(DS) AB, QN <1 IU/mL (0-9); *ANA ANTI-JO-1 <0.2 AI (0.0-0.9); *ANA ANTICHROMATIN ANTIBODY <0.2 AI (0.0-0.9); *ANA RNP ANTIBODIES <0.2 AI (0.0-0.9); *ANA SJOGREN'S ANTI-SS-A <0.2 AI (0.0-0.9); *ANA SJOGREN'S ANTI-SS-B <0.2 AI (0.0-0.9); *ANAANTI-SCLERODERMA-70 AB <0.2 AI (0.0-0.9); *ANASMITH AB <0.2 AI (0.0-0.9)
--- NOTE | 2023-11-28 12:15 | NUR ---
PT BECAME NONCOMPLIANT, PULLED ALL THE TUBING AND WIRES, THROWING THINGS FROM HIS BED, YELLING. ZYPREXA 10 MG IM ADMINISTERED, PT REMAINING UNDER CLOSE SUPERVISION.
[2023-11-28 15:09] LABS: *SPE A/G RATIO 1.4 (0.7-1.7); *SPE ALBUMIN 2.8 g/dL (2.9-4.4); *SPE ALPHA-1-GLOBULIN 0.3 g/dL (0.0-0.4); *SPE ALPHA-2-GLOBULIN 0.4 g/dL (0.4-1.0); *SPE BETA GLOBULIN 0.7 g/dL (0.7-1.3); *SPE M-SPIKE Not Observed g/dL (Not Observed); *SPE PROTEIN TOTAL 4.8 g/dL (6.0-8.5); *SPEGAMMA GLOBULIN 0.6 g/dL (0.4-1.8)
--- NOTE | 2023-11-28 15:21 | NUR ---
RT NOTE PT IS REFUSING HHN TX @ THIS TIME. NO SOB OR RESP. DISTRESS NOTED. RN AWARE. Addendum: 11/28/23 at 1522 by ALEX ANDUJAR RT Amended: Links added.
--- NOTE | 2023-11-28 15:30 | NUR ---
PATIENT REFUSING TREATMENT, PULLING TUBES, TAKEN OUT MONITORS. COMFORT MEASURES, REASSURANCE, SOFT RESTRAINTS REINFORCED, CLOSE SUPERVISION.
--- NOTE | 2023-11-28 16:10 | NUR ---
PT ABLE TO GET OUT OF BED, FIGHTING. GOT HELP TO BRING HIM BACK TO BAD. DR RHODES NOTIFIED.
--- NOTE | 2023-11-28 16:45 | NUR ---
GOT 'S ORDER FOR ATIVAN
[2023-11-28 16:48] LABS: HEMOGLOBIN 7.9 g/dL (13.5-17.5)
[2023-11-28] MEDS: LORAZEPAM INJ 2 MG/ML VIAL IV PRN (17:00)
[2023-11-28] MEDS: PANTOPRAZOLE 40 MG TABLET.DR PO SCH (17:00)
--- NOTE | 2023-11-28 17:10 | NUR ---
ATIVAN 2MG/ML IV ADMINISTERED. BP 123/72, HR 79. WILL CONTINUE DOCUMENT VS Q 15 MIN ON DATASCOPE. PT ASLEEP.
--- NOTE | 2023-11-28 18:25 | NUR ---
PT TRANSFERRED TO TELEMETRY 1ST FLOOR, SAFELY/ PER ACLS PROTOCOL. BEDSIDE REPORT GIVEN TO ANJELICA FUNES
--- NOTE | 2023-11-28 18:55 | NUR ---
RN NOTES PT CARE TRANSFER TO SCULPTURE INSTRUCTORANJELICA FUNES.
--- NOTE | 2023-11-28 18:56 | NUR ---
RN CLOSING NOTES PT IS IN BED, ASLEEP, A/OX3, HOWEVER REPORTED THAT PT WAS AGITATED IN THE ICU AND PT WAS PROVIDED ATIVAN. ON 5L OF O2 VIA NC, TOLERATING WELL. ON TELE READING AFIB, 103. IV ON THE WENDY ML RUNNING NS @ 100ML/HR, AND LAC 20G, SL, PATENT AND INTACT. RESTRAINTS ON PT, SOFT WRIST BILATERAL WRIST RESTRAINTS, NO REDNESS NOR SKIN BREAKDOWN NOTED. ALL MEDS PROVIDED AND ALL PTS NEEDS METS, PT IS CLEANED AND CHANGED, WOUND CARE COMPLETED. SAFETY MEASURES IN PLACE: BED AT LOWEST AND LOCKED POSITION, HOB ELEVATED, SIDE RAILS X 3, CALL LIGHT AND TABLE WITHIN WILL ENDORSE POC.
--- NOTE | 2023-11-28 19:15 | NUR ---
RN NOTE RECEIVED PT FOR CONTINUITY OF CARE. PATIENT PRESENTED LETHARGIC BUT IN NO S/SX OF ACUTE DISTRESS AT THIS TIME; CURRENTLY ON 5L OF 02 VIA NV; WITH 02 SAT >95% AT THIS TIME. WITH IV ACCESS PATENT, INTACT AND FLUSHING WELL. WITH RUNNING NS@ 100CC/HR. PT ON PUREED DIET. WITH BILATERAL SOFT RESTRAINTS IN PLACED, MONITORED AND ASSESSED PER PROTOCOL. WILL ENSURE SAFETY MEASURES WITHIN THE SHIFT. PATIENT BED ALARM IS ON. HEAD OF BED ELEVATED. BED IS LOCKED, IN LOWEST POSITION AND SIDE RAILS UP. CALL LIGHT WITHIN REACH OF THE PATIENT. WILL CONTINUE TO MONITOR AND REASSESS FOR ANY CHANGES AND WILL CARRY OUT ANY ONGOING AND ACTIVE MD ORDER.
[2023-11-29] VITALS (10 sets, daily range): BP systolic 112–121; BP diastolic 66–94; TEMP 96.4–98.5; O2SAT 94–100
[2023-11-29 00:28] LABS: HEMOGLOBIN 8.4 g/dL (13.5-17.5)
--- NOTE | 2023-11-29 06:24 | NUR ---
RN NOTE PATIENT REMAINS IN ROOM IN NO SIGNS OF RESPIRATORY DISTRESS, PATIENT STILL ON 4L OF 02 VIA NC; TOLERATING WELL SATURATING @ >93% SP02. SAFETY MEASURES IMPLEMENTED, BED IN LOWEST POSITION, LOCKED, SIDE RAILS UP, CALL LIGHT WITHIN REACH. ALL NEEDS AND ORDERS ADDRESSED DURING THE SHIFT. IV ACCESS MAINTAINED INTACT, SECURED AND FLUSHING WELL. ALL DUE MEDS GIVEN ORDERED & SCHEDULED ; PATIENT TOLERATED WELL. PATIENT KEPT CLEAN AND COMFORTABLE WITHIN THE SHIFT. PATIENT ENDORSED TO INCOMING SHIFT RN WITH STABLE VITAL SIGN AND FOR CONTINUITY OF CARE.
[2023-11-29 06:55] LABS: HEMATOCRIT 24 % (39-51); HEMOGLOBIN 8.2 g/dL (13.5-17.5); LYMPHOCYTES # (AUTO) 0.2 K/uL (0.8-4.8); LYMPHOCYTES % (AUTO) 2.8 % (20.0-44.0); MEAN CORPUSCULAR HEMOGLOBIN 32 PG (26.0-33.0); MEAN CORPUSCULAR HGB CONC 35 g/dl (31.0-36.0); MEAN CORPUSCULAR VOLUME 92 fL (80-96); MONOCYTES # (AUTO) 0.3 K/uL (0.1-1.30); NEUTROPHILS # (AUTO) 8.2 K/uL (1.8-8.9); NEUTROPHILS % (AUTO) 94.2 % (43.0-81.0); PLATELET COUNT (AUTO) 78 K/uL (150-450); RED BLOOD CELL COUNT(AUTO) 2.55 MIL/uL (4.5-6.0); RED CELL DISTRIBUTION WIDTH 20.7 % (11.5-15.0); WHITE BLOOD COUNT (AUTO) 8.7 K/uL (4.3-11.0)
[2023-11-29 07:01] LABS: D-DIMER 2.39 mg/L(FEU (0.17-0.50); INR 1.13 (0.91-1.10); PARTIAL THROMBOPLASTIN TIME 31.1 SEC (24.3-34.3); PROTHROMBIN TIME 11.9 SECS (9.2-11.1)
[2023-11-29 07:04] LABS: CALCIUM, SERUM 8.1 mg/dL (8.5-10.1); CARBON DIOXIDE 26 mmol/L (21-32); CHLORIDE 108 mmol/L (98-107); CREATININE 0.8 mg/dL (0.6-1.3); GLUCOSE 111 mg/dL (74-106); SODIUM SERUM 140 mmol/L (136-145); UREA NITROGEN, BLOOD 22 mg/dL (7-18)
--- NOTE | 2023-11-29 07:15 | NUR ---
WASTE DUSTER OPENING NOTE REC'D PT ON BED, AWAKE A&OX1, LETHARGIC. ON 4LPM O2 VIA NC, TOLERATING WELL. BREATHING EVEN & UNLABORED. O2 SAT > 95%. CURRENTLY ON TELEMETRY MONITORING W/ READING OF AFIB & HR 101. IV ACCESS ON HELADIO #18G-SL & WENDY #20G-SL W/ NS INFUSING @ 100CC/HR. IV SITES ARE INTACT & PATENT W/ NO S/SX OF INFILTRATION NOTED. BILATERAL SOFT WRIST RESTRAINTS IN PLACE. ALL SAFETY MEASURES IN PLACE. HOB UP. LOCKED BED IN LOWEST POSITION W/ BED ALARM ON. SR UP X2. CALL LIGHT W/IN EASY REACH. WILL CONTINUE W/ ON-GOING POC.
[2023-11-29 11:35] LABS: ANISOCYTOSIS 1+; BAND % (MANUAL) 4 % (0.0-5.0); BASOPHILS % (MANUAL) 0 % (0.0-2.0); EOSINOPHILS % (MANUAL) 0 % (0-4); LYMPHOCYTES % (MANUAL) 7 % (16-48); MONOCYTES % (MANUAL) 5 % (0-11.0); NEUTROPHILS % (MANUAL) 84 (42-76); PLATELET ESTIMATE DECREASED
[2023-11-29 11:39] LABS: HEMOGLOBIN 8.1 g/dL (13.5-17.5)
[2023-11-29] MEDS: ACETAMINOPHEN 325 MG TABLET PO PRN (17:30)
[2023-11-29 17:43] LABS: HEMOGLOBIN 8.5 g/dL (13.5-17.5)
--- NOTE | 2023-11-29 18:00 | NUR ---
RN NOTE RECEIVED ORDER FROM MD TO HOLD DISCHARGE TO HOME ORDER, PATIENT ATE 15% OF DINNER ONLY. WILL CONTINUE TO MONITOR. Addendum: 11/29/23 at 1913 by AMBREEN MCKEE RN WRONG ENTRY
--- NOTE | 2023-11-29 19:07 | NUR ---
MEDICAL ADMINISTRATIVE TECHNICIAN CLOSING NOTE [id number] ON BED, AWAKE A&OX1, LETHARGIC. ON 4LPM O2 VIA NC, TOLERATING WELL. BREATHING EVEN & UNLABORED. O2 SAT > 95%. CURRENTLY ON TELEMETRY MONITORING W/ READING OF AFIB & HR 101. IV ACCESS ON HELADIO #18G-SL & WENDY #20G-SL W/ NS INFUSING @ 100CC/HR. IV SITES ARE INTACT & PATENT W/ NO S/SX OF INFILTRATION NOTED. BILATERAL SOFT WRIST RESTRAINTS IN PLACE. ALL SAFETY MEASURES IN PLACE. HOB UP. LOCKED BED IN LOWEST POSITION W/ BED ALARM ON. SR UP X2. CALL LIGHT W/IN EASY REACH Addendum: 11/29/23 at 1907 by AMBREEN MCKEE RN WRONG ENTRY
--- NOTE | 2023-11-29 19:08 | NUR ---
PHYSIOTHERAPY ASSISTANT CLOSING NOTE PATIENT ON AWAKE A&OX1, WITH CONFUSION. ON 4LPM O2 VIA NC, TOLERATING WELL. BREATHING EVEN & UNLABORED. O2 SAT > 95%. CURRENTLY ON TELEMETRY MONITORING W/ READING OF AFIB & HR 90'S. IV ACCESS ON HELADIO #18G-SL & WENDY #20G-SL. IV SITES ARE INTACT & PATENT W/ NO S/SX OF INFILTRATION NOTED. BILATERAL SOFT WRIST RESTRAINTS IN PLACE. ALL SAFETY MEASURES IN PLACE. HOB UP. LOCKED BED IN LOWEST POSITION W/ BED ALARM ON. SR UP X2. CALL LIGHT W/IN EASY REACH. WILL ENDORSE TO NIGHT NURSE FOR CONTINUITY OF CARE.
[2023-11-29] MEDS: SOD FERRIC GLUC 125 MG in IV NS 0.9% 100 ML IV SCH (19:28)
--- NOTE | 2023-11-29 19:30 | NUR ---
RN NOTE PATIENT REFUSED TO HAVE HIS VENTOLIN TREATMENT.
--- NOTE | 2023-11-29 19:45 | NUR ---
RN OPENING NOTE RECEIVED PATIENT RESTING IN BED, A/OX1, LETHARGIC. ON O2 VIA NASAL CANNULA AT 4LPM, TOLERATING WELL, SATURATING AT 94%. NO S/SX OF ACUTE DISTRESS NOTED AT THIS TIME. ON TELEMETRY MONITORING W/ READING OF AFIB 82. IV ACCESS ON EHLADIO #18G AND WENDY #20G WITH NS RUNNING AT 100CC/HR, BOTH SL, INTACT AND PATENT . BILATERAL SOFT WRIST RESTRAINTS IN PLACE. SAFETY MEASURES IN PLACE, HOB ELEVATED, BED IN LOW POSITION AND LOCKED , BED ALARM ON, SIDE RAILS UP X2. BEDSIDE TABLE AND CALL LIGHT WITHIN EASY REACH. WILL CONTINUE TO MONITOR. PLAN OF CARE ONGOING. Addendum: 11/30/23 at 0639 by TARI RUBIO RN NS RUNNING AT 100CC/HR DISREGRAD. BOTH IV SL
[2023-11-30] VITALS (29 sets, daily range): BP systolic 96–134; BP diastolic 56–94; TEMP 97.4–98.7; O2SAT 91–100
[2023-11-30 00:45] LABS: HEMOGLOBIN 8.3 g/dL (13.5-17.5)
--- NOTE | 2023-11-30 01:30 | NUR ---
RN NOTE PATIENT REFUSED VENTOLIN INHALER.
--- NOTE | 2023-11-30 06:38 | NUR ---
RN CLOSING NOTE PATIENT RESTING IN BED, A/OX1. ON O2 VIA NASAL CANNULA AT 4LPM, TOLERATING WELL, SATURATING AT 94%. NO S/SX OF ACUTE DISTRESS NOTED AT THIS TIME. ON TELEMETRY MONITORING W/ READING OF AFIB UNCONTROLLED/CONTROLLED 82. IV ACCESS ON HELADIO #18G AND WENDY #20G BOTH SL, INTACT AND PATENT. BILATERAL SOFT WRIST RESTRAINTS IN PLACE. SAFETY MEASURES IN PLACE, HOB ELEVATED, BED IN LOW POSITION AND LOCKED , BED ALARM ON, SIDE RAILS UP X2. BEDSIDE TABLE AND CALL LIGHT WITHIN EASY REACH. WILL ENDORSE SHIFT RN. PLAN OF CARE ONGOING.
--- NOTE | 2023-11-30 07:55 | NUR ---
TURNAROUND PLANNER OPENING NOTE PT RESTING IN BED, A/OX1. ON O2 VIA NASAL CANNULA AT 4LPM, TOLERATING WELL. NO S/SX OF ACUTE DISTRESS NOTED AT THIS TIME. ON TELE MONITOR READING OF AFIB CONTROLLED. IV ACCESS ON HELADIO #18G AND WENDY #20G BOTH SL, INTACT AND PATENT. BILATERAL SOFT WRIST RESTRAINTS IN PLACE. NO SKIN BREAKDOWN OR CIRCULATION ISSUES NOTED AT THIS TIME. ALL SAFETY MEASURES IN PLACE, HOB ELEVATED, BED IN LOW POSITION AND LOCKED , BED ALARM ON, SIDE RAILS UP X2.CALL LIGHT WITHIN REACH
--- NOTE | 2023-11-30 07:56 | NUR ---
rn note please disregard previous note stating pt alert and oriented x1. pt alert and oriented x3
[2023-11-30 08:05] LABS: CALCIUM, SERUM 8.5 mg/dL (8.5-10.1); CARBON DIOXIDE 26 mmol/L (21-32); CHLORIDE 109 mmol/L (98-107); CREATININE 0.8 mg/dL (0.6-1.3); GLUCOSE 75 mg/dL (74-106); POTASSIUM 3.8 mmol/L (3.5-5.1); SODIUM SERUM 142 mmol/L (136-145); UREA NITROGEN, BLOOD 28 mg/dL (7-18)
[2023-11-30 08:12] LABS: D-DIMER 2.25 mg/L(FEU (0.17-0.50); INR 1.14 (0.91-1.10); PARTIAL THROMBOPLASTIN TIME 32.8 SEC (24.3-34.3)
[2023-11-30 08:17] LABS: BASOPHILS % (AUTO) 0.1 % (0.0-2.0); HEMATOCRIT 25 % (39-51); HEMOGLOBIN 8.3 g/dL (13.5-17.5); LYMPHOCYTES # (AUTO) 0.2 K/uL (0.8-4.8); LYMPHOCYTES % (AUTO) 2.2 % (20.0-44.0); MEAN CORPUSCULAR HEMOGLOBIN 32 PG (26.0-33.0); MEAN CORPUSCULAR HGB CONC 34 g/dl (31.0-36.0); MEAN CORPUSCULAR VOLUME 94 fL (80-96); MONOCYTES # (AUTO) 0.3 K/uL (0.1-1.30); MONOCYTES % (AUTO) 3.6 % (2.0-12.0); NEUTROPHILS # (AUTO) 9.1 K/uL (1.8-8.9); NEUTROPHILS % (AUTO) 94.1 % (43.0-81.0); PLATELET COUNT (AUTO) 75 K/uL (150-450); RED BLOOD CELL COUNT(AUTO) 2.62 MIL/uL (4.5-6.0); RED CELL DISTRIBUTION WIDTH 21.7 % (11.5-15.0); WHITE BLOOD COUNT (AUTO) 9.6 K/uL (4.3-11.0)
[2023-11-30] MEDS: dexaMETHasone SOD PHOSPHATE 4 MG/ML VIAL IV SCH (08:20)
--- NOTE | 2023-11-30 08:54 | NUR ---
rn note pt sounds congested and gurly. notfied , received order for stat chest xray, and okay to hold po meds at this time Addendum: 11/30/23 at 0913 by MILLIE ANTON RN crushed medications in applesauce, discarded medications in trash
--- NOTE | 2023-11-30 08:55 | NUR ---
RN NOTE PO MEDICATIONS NOT GIVEN
[2023-11-30 09:29] LABS: ANISOCYTOSIS 1+; LYMPHOCYTES % (MANUAL) 1 % (16-48); MONOCYTES % (MANUAL) 2 % (0-11.0); NEUTROPHILS % (MANUAL) 97 (42-76); PLATELET ESTIMATE DECREASED
[2023-11-30 09:30] LABS: OVALOCYTES 1+
--- NOTE | 2023-11-30 10:19 | NUR ---
edison applied,duplicate order
[2023-11-30] MEDS: FUROSEMIDE 40 MG/4 ML VIAL IV STA (10:23)
--- NOTE | 2023-11-30 10:23 | NUR ---
rn note pt congested. lasix 40 mg given per md order
[2023-11-30 10:44] LABS: ALBUMIN 2.5 g/dL (3.4-5.0); BILIRUBIN,DIRECT 0.4 mg/dL (0.0-0.2); BILIRUBIN,TOTAL 1.3 mg/dL (0.2-1.0); TOTAL PROTEIN, SERUM 5.2 g/dL (6.4-8.2)
--- NOTE | 2023-11-30 10:50 | NUR ---
rn note called diesel mechanic construction, pt has ct scan stat, and per diesel mechanic construction unable to do right now, stated will do as soon as soon as he will have chance
--- NOTE | 2023-11-30 10:50 | NUR ---
rn note pt more alert and awake at this time. explained ct chest, abdomen procedure to patient. pt verbalized understanding. had no questions regarding procedure and agreeable to procedure
--- NOTE | 2023-11-30 12:25 | NUR ---
rn note relayed xray results to .last lasxix given 1006. updated with pt condition, urine output 600 ml after lasix given. right arm swollen, ultrasound of right arm negative for dvt. rt deep suctioned patient, pt still congested. pt lethargic on and off bp 126/92 on 4l saturation 90%. ordered continue everything for now, keep pt npo and for speech therapist to see pt
[2023-11-30 13:15] LABS: HEMOGLOBIN 8.1 g/dL (13.5-17.5)
--- NOTE | 2023-11-30 13:20 | NUR ---
rn note mitchel with to order baseline abg Addendum: 11/30/23 at 1330 by MILLIE ANTON RN pt still lethargic on and off, notified with order abg. called rt for abg and to deep suction pt.
--- NOTE | 2023-11-30 13:22 | NUR ---
rn note asked pt to clarify code status on polst. asked him neuro questions. answered questions correctly. asked two different times by primary rn and zinc furnace charger about code status. pt verbalized wanting to be full code. witnessed by elisa velasco rn. dr.dermendijian graceay with switching code status from dnr/dni to full code.md tate
[2023-11-30 13:39] LABS: ABG BASE EXCESS -1.3 mmol/L (-2.0-2.0); ABG OXYGEN SATURATION 95.1 % (92.0-98.5); ABG PCO2 33.6 mmHg (35.0-45.0); ABG PH 7.443 (7.340-7.440); ABG TOTAL HEMOGLOBIN 8.9 G/dL (14.0-18.0); AaDO2 134.7 mmHg; COHb 0.1 % (0.5-1.5); MetHb 0.2 % (0.0-1.5); O2Hb 94.8 % (94.0-97.0); SITE, ABG Right Brachial; VENT MODE, BG NASAL CANNULA
--- NOTE | 2023-11-30 13:52 | NUR ---
rn note relayed ABG results to md Jasper said normal, no new orders at this time
[2023-11-30] MEDS ORDERED: IOHEXOL-300 100 ML VIAL IV ONE (14:22)
[2023-11-30] MEDS ORDERED: CT SWABBABLE VALVE TRANS SET 1 EA INFUS.SET MC ONE (14:23)
[2023-11-30] MEDS ORDERED: IV NS 0.9% 250 ML IV ONE (14:23)
[2023-11-30 15:15] LABS: HEMOGLOBIN 7.5 g/dL (13.5-17.5)
--- NOTE | 2023-11-30 15:46 | NUR ---
rn note updated with patient condition, pt more lethargy and drowsy, and if ct head can be ordered. received orders from dr. woody for ammonia level, lactic acid and ct head wo contrast
[2023-11-30] MEDS ORDERED: LACTULOSE UDC 200 G in SODIUM CHLORIDE IRRIG SOLUTION 400 ML IR SCH (16:00)
[2023-11-30] MEDS ORDERED: MEROPENEM 1 G in IV NS 0.9% 100 ML IV SCH (16:00)
--- NOTE | 2023-11-30 16:11 | NUR ---
telecom analyst note per dr zee ok to transfer to icu
[2023-11-30] MEDS: RIVAROXABAN 10 MG TABLET PO SCH (17:00)
[2023-11-30] MEDS: VANCOMYCIN 750 MG in IV D5W 250 ML IV SCH (17:00)
--- NOTE | 2023-11-30 17:20 | NUR ---
internet marketing assistant note pt more lethargy and drowsy at this time. responds to painful stimuli,able to verbalize name. per transferred to icu for close monitoring. unable to do ct head today, per photographic reproduction technician, pt had ct chest, abdomen earlier with contrast. needs time for contrast to remove from system and risky for another ct today. pt transferred via ACLS protocol, report given to elisa javier for contuity of care. all belongings with pt.
--- NOTE | 2023-11-30 17:35 | NUR ---
RECEIVED PATIENT FROM TELEMETRY 1ST FLOOR. PT ABLE TO VERBALIZE NEEDS, ORIENTED X 2; A-FIB ON MONITOR; MULTIPLE DRESSINGS NEEDS TO BE CHANGE; ONLY ONE IV ACCESS -LEFT UA PERIPHERAL, ALL OTHER IV ACCESSES PULLED OUT/ NOT WORKING.
--- NOTE | 2023-11-30 18:28 | NUR ---
HOLD LLUVIA, PRE-PROCEDURE FOR TOMORROW, US GUIDED THORACENTESIS.
[2023-11-30] MEDS: CEFTAZIDIME 2 G in IV D5W 100 ML IV SCH (18:39)
--- NOTE | 2023-11-30 19:30 | NUR ---
FROM 17:35, WHEN RECEIVED PT, TO 19:30, WAS UNABLE TO GET VANCOMYCIN FROM PHARMACY AFTER MULTIPLE CALLS.
[2023-11-30] MEDS: NA PHOS,M-B/NA PHOS,DI-BA 1 EA ENEMA RC ONE (21:11)
[2023-11-30] MEDS ORDERED: DOPamine 400 MG in IV D5W 250 ML IV PRN (21:30)
[2023-12-01] VITALS (31 sets, daily range): BP systolic 87–130; BP diastolic 50–90; TEMP 97.8–98.7; O2SAT 93–100
[2023-12-01] MEDS: IPRATROPIUM NEB FS 0.5 MG/2.5 ML AMPUL.NEB NEB ONE (01:28)
--- NOTE | 2023-12-01 02:13 | NUR ---
atrovent inhaler not available, one dose rt given.
--- NOTE | 2023-12-01 04:27 | NUR ---
FAC ENGINEER. AM CARE GIVEN. REMAINING SAME OXYGEN TOLERATED WELL. SAT 98%. NO ACUTE DISTRESS NOTED. WILDLIFE FORENSIC GENETICIST SHOWING NSR. IV LT UPPER ARM MID LINE TKO ON. HOB ELEVATED. TURN AND REPOSITION Q2H. WILL CONTINUE TO MONITOR VITALS.
[2023-12-01 05:06] LABS: EOSINOPHILS % (AUTO) 0.1 % (0.0-6.0); HEMATOCRIT 25 % (39-51); HEMOGLOBIN 8.7 g/dL (13.5-17.5); LYMPHOCYTES # (AUTO) 0.1 K/uL (0.8-4.8); LYMPHOCYTES % (AUTO) 2.2 % (20.0-44.0); MEAN CORPUSCULAR HEMOGLOBIN 32 PG (26.0-33.0); MEAN CORPUSCULAR HGB CONC 34 g/dl (31.0-36.0); MEAN CORPUSCULAR VOLUME 93 fL (80-96); MONOCYTES # (AUTO) 0.2 K/uL (0.1-1.30); MONOCYTES % (AUTO) 2.4 % (2.0-12.0); NEUTROPHILS # (AUTO) 5.9 K/uL (1.8-8.9); NEUTROPHILS % (AUTO) 95.3 % (43.0-81.0); PLATELET COUNT (AUTO) 60 K/uL (150-450); RED BLOOD CELL COUNT(AUTO) 2.72 MIL/uL (4.5-6.0); WHITE BLOOD COUNT (AUTO) 6.2 K/uL (4.3-11.0)
[2023-12-01 06:00] LABS: ALANINE AMINOTRANSFERASE 40 U/L (12-78); ALBUMIN 2.3 g/dL (3.4-5.0); ALKALINE PHOSPHATASE 90 U/L (46-116); ASPARTATE AMINOTRANSFERASE 34 U/L (15-37); BILIRUBIN,TOTAL 1.3 mg/dL (0.2-1.0); CALCIUM, SERUM 8.5 mg/dL (8.5-10.1); CARBON DIOXIDE 28 mmol/L (21-32); CHLORIDE 109 mmol/L (98-107); CREATININE 0.8 mg/dL (0.6-1.3); GLUCOSE 65 mg/dL (74-106); POTASSIUM 3.4 mmol/L (3.5-5.1); SODIUM SERUM 142 mmol/L (136-145); TOTAL PROTEIN, SERUM 4.9 g/dL (6.4-8.2); UREA NITROGEN, BLOOD 26 mg/dL (7-18)
[2023-12-01] MEDS: VANCOMYCIN 1 GM /D5W 250 ML PB IV ONE (06:08)
--- NOTE | 2023-12-01 07:30 | NUR ---
RN NOTE PATIENT IS AXOX1 OPEN EYES SPONTANEOUSLY, CONFUSED BUT CAPABLE OF FOLLOWING COMMANDS AFIB IN THE 90'S SATURATING 95% ON 6LNC RR 24 WILL CONTINUE TO MONITOR
[2023-12-01 08:47] LABS: ANISOCYTOSIS 1+; OVALOCYTES 1+
[2023-12-01] MEDS: POTASSIUM CL. PREMIX PERIPHER. 50 ML IV SCH (10:00)
--- NOTE | 2023-12-01 11:00 | NUR ---
PATIENT REFUSED THORACENTESIS MD RHODES MADE AWARE
--- NOTE | 2023-12-01 14:00 | NUR ---
RN TRS PATIENT TRANSFERRED TO ROOM 118-1 REPORT GIVEN AT BEDSIDE HR 95, AFIB, SATURATING 100% ON 3LNC BP 116/60
--- NOTE | 2023-12-01 14:05 | NUR ---
RN note patient transferred from icu , very aggressive and combative , refused to take medications , im zyprexa given , not responded , still very aggressive and confused . v
[2023-12-01] MEDS: HALOPERIDOL LACTATE INJ 5 MG/ML VIAL IM PRN (17:46)
[2023-12-01] MEDS: ENOXAPARIN SODIUM 60 MG/0.6 ML DISP.SYRIN SQ SCH (18:30)
--- NOTE | 2023-12-01 19:55 | NUR ---
COAT OPERATOR OPENING NOTE RECEIVED PT. AWAKE IN BED. AGITATED AND COMBATIVE. ON NC @3LPM .WITH SOFT BILATERAL RESTRAIN.IV ACCESS @HELADIO MIDLINE PATENT AND INTACT.WITH SKIN TEAR AT BOTH UPPER EXTREMITIES AND BOTH ANKLE.WILL CONTINUE PLAN OF CARE.
[2023-12-02] VITALS (14 sets, daily range): BP systolic 83–105; BP diastolic 39–74; TEMP 97.5–98.2; O2SAT 91–100
--- NOTE | 2023-12-02 04:52 | NUR ---
PT. IS AGITATED AND COMBATIVE .HALDOL GIVEN IM AT RIGHT DELTOID MUSCLE. CHARGED NURSE AWARE.
[2023-12-02 07:09] LABS: ALANINE AMINOTRANSFERASE 36 U/L (12-78); ALBUMIN 1.8 g/dL (3.4-5.0); ALKALINE PHOSPHATASE 72 U/L (46-116); ASPARTATE AMINOTRANSFERASE 42 U/L (15-37); BILIRUBIN,TOTAL 1.6 mg/dL (0.2-1.0); CALCIUM, SERUM 8.5 mg/dL (8.5-10.1); CARBON DIOXIDE 26 mmol/L (21-32); CHLORIDE 107 mmol/L (98-107); CREATININE 0.8 mg/dL (0.6-1.3); GLUCOSE 76 mg/dL (74-106); POTASSIUM 3.1 mmol/L (3.5-5.1); SODIUM SERUM 141 mmol/L (136-145); TOTAL PROTEIN, SERUM 4.3 g/dL (6.4-8.2); UREA NITROGEN, BLOOD 28 mg/dL (7-18)
[2023-12-02 07:10] LABS: HEMATOCRIT 21 % (39-51); HEMOGLOBIN 7.1 g/dL (13.5-17.5); LYMPHOCYTES # (AUTO) 0.1 K/uL (0.8-4.8); LYMPHOCYTES % (AUTO) 2.4 % (20.0-44.0); MEAN CORPUSCULAR HEMOGLOBIN 32 PG (26.0-33.0); MEAN CORPUSCULAR HGB CONC 34 g/dl (31.0-36.0); MEAN CORPUSCULAR VOLUME 93 fL (80-96); MONOCYTES # (AUTO) 0.1 K/uL (0.1-1.30); MONOCYTES % (AUTO) 1.6 % (2.0-12.0); NEUTROPHILS # (AUTO) 3.6 K/uL (1.8-8.9); RED BLOOD CELL COUNT(AUTO) 2.23 MIL/uL (4.5-6.0); RED CELL DISTRIBUTION WIDTH 22.3 % (11.5-15.0); WHITE BLOOD COUNT (AUTO) 3.8 K/uL (4.3-11.0)
--- NOTE | 2023-12-02 07:15 | NUR ---
RN CLOSING NOTE ENDORSED TO ONCOMING RN FOR CONTINUE PLAN OF CARE.
--- NOTE | 2023-12-02 07:45 | NUR ---
RN OPENING NOTE Received pt in bed sleeping at this time. Pt continues on 02 @4lpm via n/c. adjustment clerk in place. IV access to HELADIO midline. Soft wrist restraints due to being combative and agitation. Safety measures in place. Bed in low and locked position. Call light in reach. Plan of care ongoing.
[2023-12-02 07:50] LABS: PLATELET COUNT (AUTO) 47 K/uL (150-450)
--- NOTE | 2023-12-02 10:00 | NUR ---
RN NOTE Pt noted with low bp 83/39. Repeat bp 68/39. Notified MD with order of NS 1L Bolus and re-check bp.
[2023-12-02 11:50] LABS: ANISOCYTOSIS 1+; BASOPHILS % (MANUAL) 0 % (0.0-2.0); EOSINOPHILS % (MANUAL) 0 % (0-4); LYMPHOCYTES % (MANUAL) 5 % (16-48); MONOCYTES % (MANUAL) 1 % (0-11.0); NEUTROPHILS % (MANUAL) 94 (42-76); PLATELET ESTIMATE DECREASED
[2023-12-02] MEDS: POTASSIUM CHLORIDE 20 MEQ TAB.PRT.SR PO ONE (16:30)
--- NOTE | 2023-12-02 17:32 | NUR ---
RN NOTE 1L NS bolus administered. BP 118/63. Pt remains stable at this time.
[2023-12-02 17:48] LABS: BASOPHILS # (AUTO) 0.1 K/uL (0.0-0.2); BASOPHILS % (AUTO) 0.5 % (0.0-2.0); EOSINOPHILS # (AUTO) 0.4 K/uL (0.0-0.7); EOSINOPHILS % (AUTO) 2.1 % (0.0-6.0); HEMATOCRIT 23 % (39-51); HEMOGLOBIN 7.7 g/dL (13.5-17.5); LYMPHOCYTES # (AUTO) 0.6 K/uL (0.8-4.8); LYMPHOCYTES % (AUTO) 3.1 % (20.0-44.0); MEAN CORPUSCULAR HEMOGLOBIN 30 PG (26.0-33.0); MEAN CORPUSCULAR HGB CONC 33 g/dl (31.0-36.0); MEAN CORPUSCULAR VOLUME 89 fL (80-96); MONOCYTES # (AUTO) 0.9 K/uL (0.1-1.30); MONOCYTES % (AUTO) 4.8 % (2.0-12.0); NEUTROPHILS % (AUTO) 89.5 % (43.0-81.0); PLATELET COUNT (AUTO) 153 K/uL (150-450); RED BLOOD CELL COUNT(AUTO) 2.58 MIL/uL (4.5-6.0); RED CELL DISTRIBUTION WIDTH 16.3 % (11.5-15.0)
[2023-12-02 18:03] LABS: CALCIUM, SERUM 9.7 mg/dL (8.5-10.1); CARBON DIOXIDE 27 mmol/L (21-32); CHLORIDE 96 mmol/L (98-107); CREATININE 1.9 mg/dL (0.6-1.3); GLUCOSE 126 mg/dL (74-106); POTASSIUM 3.1 mmol/L (3.5-5.1); SODIUM SERUM 131 mmol/L (136-145); UREA NITROGEN, BLOOD 49 mg/dL (7-18)
[2023-12-02 18:49] LABS: EOSINOPHILS % (MANUAL) 2 % (0-4); LYMPHOCYTES % (MANUAL) 3 % (16-48); MONOCYTES % (MANUAL) 7 % (0-11.0); NEUTROPHILS % (MANUAL) 88 (42-76); PLATELET ESTIMATE ADEQUATE
[2023-12-02 18:51] LABS: ANISOCYTOSIS 1+; OVALOCYTES 1+; STOMATOCYTES 1+
--- NOTE | 2023-12-02 19:03 | NUR ---
RN CLOSING NOTE Pt in bed sleeping at this time. Pt continues on 02 @4lpm via n/c. varnishing unit operator in place. IV access to HELADIO midline. Soft wrist restraints in place, monitoring skin integrity q2hrs. All due meds administered and tolerated well. Safety measures in place. Bed in low and locked position. Call light in reach. Plan of care ongoing.
--- NOTE | 2023-12-02 19:40 | NUR ---
RETAIL BEAUTY SPECIALIST OPENING NOTE RECEIVED PATIENT IN BED, EYES CLOSE, EASILY AROUSE BY VERBAL/TACTILE STIMULI. ON TELE MONITORING AFIB HR 65. NO S/SX OF ACUTE DISTRESS, NO FACIAL GRIMACING NOTED. CURRENTLY ON 6L O2 VIA NC SATING 99%. WITH IV ACCESS ON LEFT UA MIDLINE, PATENT AND INTACT, SL. ON REYES SOFT WRIST RESTRAINTS, SKIN INTACT, NO SKIN DISCOLORATION NOTED. ALL SAFETY MEASURES IMPLEMENTED, BED IN LOWEST LOCKED POSITION, SIDE RAILS UP X2, BEDSIDE TABLE AND CALL LIGHT WITHIN REACH. HOB ELEVATED. WILL CONTINUE PLAN OF CARE.
--- NOTE | 2023-12-02 21:43 | NUR ---
RN NOTES RELAYED PLATELET TRENDS OF THE PT TO [place] MANAGER: 47, 61, 153, HGB 7.7 OF TODAY 12/01, WITH NEW ORDER TO HOLD LOVENOX 60MG INJ SCHEDULED 2099. NOTED AND CARRIED OUT.
[2023-12-03] VITALS (18 sets, daily range): BP systolic 95–115; BP diastolic 51–84; TEMP 97.3–97.9; O2SAT 91–99
--- NOTE | 2023-12-03 00:10 | NUR ---
RN NOTE RECEIVED REPORT FROM ROMMEL FUNES.
--- NOTE | 2023-12-03 00:10 | NUR ---
RN NOTES REPORT GIVEN TO TARI FUNES.
[2023-12-03 06:50] LABS: LYMPHOCYTES # (AUTO) 0.1 K/uL (0.8-4.8); MONOCYTES # (AUTO) 0.1 K/uL (0.1-1.30); NEUTROPHILS # (AUTO) 3.5 K/uL (1.8-8.9)
--- NOTE | 2023-12-03 06:50 | NUR ---
RN CLOSING NOTE PATIENT IN BED, EASILY AROUSABLE TO TACTILE STIMULI. ON TELE MONITORING AFIB HR 61. NO S/SX OF ACUTE DISTRESS, NO FACIAL GRIMACING NOTED. ON O2 VIA NC AT 6LPM SATING 98%. WITH IV ACCESS ON LEFT UA MIDLINE, PATENT AND INTACT, SL. ON REYES SOFT WRIST RESTRAINTS, SKIN INTACT AND GOOD CONDITION. KEPT PT CLEAN AND DRY. DUE MEDS GIVEN. SAFETY MEASURES IN PLACE, HOB ELEVATED, BED IN LOW POSITION AND LOCKED , SIDE RAILS UP X2, BEDSIDE TABLE AND CALL LIGHT WITHIN REACH. WILL ENDORSE TO MORNING SHIFT RN. PLAN OF CARE ONGOING.
[2023-12-03 06:59] LABS: EOSINOPHILS % (AUTO) 0.1 % (0.0-6.0); MEAN CORPUSCULAR HEMOGLOBIN 33 PG (26.0-33.0); MEAN CORPUSCULAR HGB CONC 35 g/dl (31.0-36.0); MEAN CORPUSCULAR VOLUME 93 fL (80-96); MONOCYTES % (AUTO) 1.8 % (2.0-12.0); NEUTROPHILS % (AUTO) 96.1 % (43.0-81.0); WHITE BLOOD COUNT (AUTO) 3.7 K/uL (4.3-11.0)
[2023-12-03 07:24] LABS: HEMATOCRIT 20 % (39-51); HEMOGLOBIN 6.9 g/dL (13.5-17.5); PLATELET COUNT (AUTO) 43 K/uL (150-450)
[2023-12-03 07:31] LABS: ALANINE AMINOTRANSFERASE 29 U/L (12-78); ALBUMIN 1.5 g/dL (3.4-5.0); ALKALINE PHOSPHATASE 66 U/L (46-116); ASPARTATE AMINOTRANSFERASE 27 U/L (15-37); BILIRUBIN,TOTAL 1.2 mg/dL (0.2-1.0); CALCIUM, SERUM 8.2 mg/dL (8.5-10.1); CARBON DIOXIDE 28 mmol/L (21-32); CHLORIDE 111 mmol/L (98-107); CREATININE 0.8 mg/dL (0.6-1.3); GLUCOSE 106 mg/dL (74-106); POTASSIUM 3.3 mmol/L (3.5-5.1); SODIUM SERUM 143 mmol/L (136-145); UREA NITROGEN, BLOOD 26 mg/dL (7-18)
--- NOTE | 2023-12-03 07:33 | NUR ---
RN NOTE RECEIVED CALL FROM TREY MENESES. PT HGB; 6.9 HCT: [address]:43[address] ENDORSED TO MORNING SHIFT RNGILBERT.
--- NOTE | 2023-12-03 07:35 | NUR ---
RN OPENING NOTES; RECEIVED PATIENT IN BED ASLEEP, EASILY ROUSED BY VERBAL/TACTILE STIMULI. ON TELE MONITORING CURRENT READING AFIB, HR= 60s. NO S/SX OF ACUTE DISTRESS, NO FACIAL GRIMACING NOTED. CURRENTLY ON 3L O2 VIA NC SATING 99%. IV ACCESS ON LEFT UA MIDLINE, PATENT AND INTACT, SL. ON REYES SOFT WRIST RESTRAINTS, SKIN INTACT, NO SKIN DISCOLORATION NOTED, CIRCULATION, WNL. ALL SAFETY MEASURES IMPLEMENTED, BED IN LOWEST LOCKED POSITION, SIDE RAILS UP X2, BEDSIDE TABLE AND CALL LIGHT WITHIN REACH. HOB ELEVATED. CARE ON GOING.
--- NOTE | 2023-12-03 08:32 | NUR ---
RN NOTES: INHALER CALLED PHARMACY TO BRING ATROVENT INHALER FOR PT, MISSING AT BEDSIDE AND CASSETTE
--- NOTE | 2023-12-03 09:14 | NUR ---
PATIENT FOUND ON 5L O2 VIA NC. NO DISTRESS NOTED. Addendum: 12/03/23 at 0915 by COLLEEN SHRESTHA RT Amended: Links added.
--- NOTE | 2023-12-03 09:30 | NUR ---
RN NOTES: HELD ANTIPLATELET/ANTICOAG, LOW H/H, LOW PLATELET, POLISHER BRASS AND MD AWARE
[2023-12-03] MEDS ORDERED: POTASSIUM CHLORIDE 20 MEQ TAB.PRT.SR PO ONE (11:00)
[2023-12-03] MEDS: POTASSIUM CL. PREMIX PERIPHER. 50 ML IV SCH (11:09)
[2023-12-03 12:21] LABS: ANISOCYTOSIS 1+; BASOPHILS % (MANUAL) 0 % (0.0-2.0); EOSINOPHILS % (MANUAL) 0 % (0-4); LYMPHOCYTES % (MANUAL) 6 % (16-48); MONOCYTES % (MANUAL) 3 % (0-11.0); NEUTROPHILS % (MANUAL) 91 (42-76); OVALOCYTES 1+; PLATELET ESTIMATE DECREASED
--- NOTE | 2023-12-03 13:57 | NUR ---
RN NOTES: PT REFUSED MIDODRINE, RN CRUSHED MEDS WITH APPLE SAUCE, PT SPAT OUT THE MEDS
--- NOTE | 2023-12-03 14:30 | NUR ---
MARIN NOTES: RENAL US CANCELLED, PER 2 TECH, PT WAS BITING AND HITTING THEM WHEN ATTEMPTING TO PERFORM ULTRASOUND Addendum: 12/03/23 at 1510 by GUEVARA JAUREGUI RN DRY PRESS OPERATOR AND MD DEP [place]
--- NOTE | 2023-12-03 14:57 | NUR ---
RN NOTES: IV ACCESS ML IS LEAKING, PT IS A HARDSTICK WITH MULTIPLE SKIN WOUNDS ON BILATERAL UPPER EXT, HEEL PADDER AND MD AWARE
--- NOTE | 2023-12-03 15:04 | NUR ---
RN NOTES: MIDLINE LEAKING L UA ML LEAKING UPON FLUSHING, AND INSPECTION. MD AND DISTILLERY MILLER AWARE. MADE HOUSE SUP AWARE FOR NEED OF NEW IV ACCESS BEFORE PRBC TRANSFUSION
--- NOTE | 2023-12-03 16:30 | NUR ---
RN NOTES: PRBC TRANSFUSION CURRENTLY PT IS ASLEEP, EASILY ROUSED, ON 4L OF O2 VIA NC WITH NO S/S OF RESP DISTRESS, SAT= 93%, VITALS WNL, RECORDED. BLOOD PRODUCT INSPECTED AND VERIFIED BY 2 RNS. TRANSFUSION STARTED AT 1630, WILL CONT TO MONITOR PT PER PROTOCOL
--- NOTE | 2023-12-03 18:49 | NUR ---
RN CLOSING NOTES; PATIENT IN BED ASLEEP, EASILY ROUSED BY VERBAL/TACTILE STIMULI. DOWNGRADED TO MS. NO S/SX OF ACUTE DISTRESS, NO FACIAL GRIMACING NOTED. CURRENTLY ON 4L O2 VIA NC SATING 96%. IV ACCESS ON LEFT UA #18, RUNNING PRBC@ 120CC/HR. R UA #18, PATENT AND INTACT, SL. ON REYES SOFT WRIST RESTRAINTS, SKIN INTACT, NO SKIN DISCOLORATION NOTED, CIRCULATION, WNL. DUE MEDS GIVEN, NEEDS MET. PLACED ON PUREWICK. ORAL SUCTION DONE PRN, WOUND CARE DONE. ALL SAFETY MEASURES IMPLEMENTED, BED IN LOWEST LOCKED POSITION, SIDE RAILS UP X2, BEDSIDE TABLE AND CALL LIGHT WITHIN REACH. HOB ELEVATED, CARE ON GOING, WILL ENDORSE TO PM SHIFT.
--- NOTE | 2023-12-03 19:12 | NUR ---
RN NOTES: S/P 1 UNIT PRBC TRANSFUSION. PT IS STABLE ON 4L OF O2 VIA NC, SAT= 97%. VITALS WNL, RECORDED. NO TRANSFUSION REACTION.
--- NOTE | 2023-12-03 19:50 | NUR ---
ETHNOLOGY TEACHER OPENING NOTES RECEIVED PATIENT IN BED AWAKE A/O X2,CONFUSED ON 3L O2 VIA NC SATING 92% HOB ELEVATED, PT COMFORTABLE POSITION. ON IV ACCESS LEFT UA AND RIGHT UA, PATENT AND INTACT SL. ON REYES SOFT WRIST RESTRAINTS, SKIN INTACT, NO SKIN DISCOLORATION NOTED, CIRCULATION, WNL. ALL SAFETY MEASURES IMPLEMENTED PER UNIT PROTOCOL. WILL CONTINUE PLAN PLAN OF CARE.
--- NOTE | 2023-12-03 20:02 | NUR ---
ALBUTEROL INHALER AND ATROVENT INHALER GIVEN 1 PUFF EACH, PT. TOLERATED WELL.
--- NOTE | 2023-12-03 21:00 | NUR ---
LOVENOX MEDS NOT GIVEN. HEMOGLOBIN 6.9. HE JUST FINISHED IPRBC. FOR [facility].TOMORROW
[2023-12-04] VITALS (12 sets, daily range): BP systolic 91–120; BP diastolic 48–75; TEMP 98.1–99.3; O2SAT 88–98
[2023-12-04 06:21] LABS: EOSINOPHILS % (AUTO) 0.1 % (0.0-6.0); HEMATOCRIT 28 % (39-51); HEMOGLOBIN 9.8 g/dL (13.5-17.5); LYMPHOCYTES # (AUTO) 0.2 K/uL (0.8-4.8); MEAN CORPUSCULAR HEMOGLOBIN 32 PG (26.0-33.0); MEAN CORPUSCULAR HGB CONC 34 g/dl (31.0-36.0); MEAN CORPUSCULAR VOLUME 94 fL (80-96); MONOCYTES # (AUTO) 0.1 K/uL (0.1-1.30); MONOCYTES % (AUTO) 2.2 % (2.0-12.0); NEUTROPHILS % (AUTO) 93.7 % (43.0-81.0); RED BLOOD CELL COUNT(AUTO) 3.04 MIL/uL (4.5-6.0); RED CELL DISTRIBUTION WIDTH 21.5 % (11.5-15.0); WHITE BLOOD COUNT (AUTO) 4.3 K/uL (4.3-11.0)
[2023-12-04 06:42] LABS: ALANINE AMINOTRANSFERASE 31 U/L (12-78); ALBUMIN 1.8 g/dL (3.4-5.0); ALKALINE PHOSPHATASE 77 U/L (46-116); ASPARTATE AMINOTRANSFERASE 22 U/L (15-37); BILIRUBIN,TOTAL 1.6 mg/dL (0.2-1.0); CALCIUM, SERUM 8.8 mg/dL (8.5-10.1); CARBON DIOXIDE 27 mmol/L (21-32); CHLORIDE 111 mmol/L (98-107); CREATININE 0.8 mg/dL (0.6-1.3); GLUCOSE 102 mg/dL (74-106); MAGNESIUM 2.1 mg/dL (1.8-2.4); PHOSPHORUS 2.1 mg/dL (2.5-4.9); POTASSIUM 3.5 mmol/L (3.5-5.1); SODIUM SERUM 146 mmol/L (136-145); TOTAL PROTEIN, SERUM 4.6 g/dL (6.4-8.2); UREA NITROGEN, BLOOD 24 mg/dL (7-18)
[2023-12-04 06:52] LABS: PLATELET COUNT (AUTO) 49 K/uL (150-450)
--- NOTE | 2023-12-04 07:45 | NUR ---
MS RN OPENING NOTES RECEIVED PT IN BED, RESTING COMFORTABLY. A/O X2 WITH CONFUSION, ON O2 AT 3L/MIN VIA NC, INCREASED RATE TO 4L/MIN, RT INFORMED O2 SATTING <90%. NO RESPIRATORY DISTRESS NOTED. WITH BILATERAL SOFT WRIST RESTRAINTS IN PLACED. IV ACCESS ON WENDY 18G, HELADIO 18G, SL, INTACT, PATENT. FALL SAFETY IN PLACED: BED LOCKED IN LOWEST POSITION, SIDE RAILS UP X2, CALL LIGHT WITHIN REACH. PLAN OF ACRE ONGOING.
--- NOTE | 2023-12-04 08:00 | NUR ---
CINDER MAN CLOSING NOTE PATIENT IN BED AWAKE A/O X2,CONFUSED ON 3L O2 VIA NC SATING 92% HOB ELEVATED, PT COMFORTABLE POSITION. ON IV ACCESS LEFT UA AND RIGHT UA, PATENT AND INTACT SL. ON REYES SOFT WRIST RESTRAINTS. ALL SAFETY MEASURES IMPLEMENTED PER UNIT PROTOCOL. ENDORSED TO INCOMING RN FOR CONTINUE PLAN PLAN OF CARE.
[2023-12-04 09:05] LABS: NEUTROPHILS % (MANUAL) 93 (42-76)
[2023-12-04 09:06] LABS: BAND % (MANUAL) 2 % (0.0-5.0); EOSINOPHILS % (MANUAL) 0 % (0-4); LYMPHOCYTES % (MANUAL) 4 % (16-48); MONOCYTES % (MANUAL) 1 % (0-11.0)
[2023-12-04 09:07] LABS: ANISOCYTOSIS 2+; PLATELET ESTIMATE DECREASED
--- NOTE | 2023-12-04 09:54 | NUR ---
RN NOTES PT BLOOD PRESSURE WNL, MIDODRINE HELD. PT HGB 9.8, PLATELET 49, HOLD LOVENOX PER BUT OK TO GIVE PLAVIX.
[2023-12-04] MEDS ORDERED: BISACODYL (5 MG) 5 MG TABLET.DR PO PRN (14:00)
[2023-12-04] MEDS: Sodium Phosphate 15 MMOL in IV NS 0.9% 245 ML IV ONE (15:50)
--- NOTE | 2023-12-04 19:03 | NUR ---
MS RN CLOSING NOTES PT IN BED, RESTING COMFORTABLY. A/O X2 WITH CONFUSION, ON O2 AT 4L/MIN VIA NC.. NO RESPIRATORY DISTRESS NOTED. WITH BILATERAL SOFT WRIST RESTRAINTS IN PLACED. IV ACCESS ON WENDY 18G RUNNING SODIUM PHOS, HELADIO 18G, SL, INTACT, PATENT. COLLECTED UA AND STOOL FOR LAB. PT HAS BLACK TARRY STOOL. ALL NEEDS ATTENDED, ALL MEDS GIVEN ORDERED. FALL SAFETY IN PLACED: BED LOCKED IN LOWEST POSITION, SIDE RAILS UP X2, CALL LIGHT WITHIN REACH. ENDORSED TO NEXT SHIFT.
--- NOTE | 2023-12-04 19:30 | NUR ---
RN opening notes Received Pt in the bed resting comfortbaly. Pt is alert and orientedX2 with episode of confusion. On 4 L NC. No SOB. No S/S of distress noted. IV site at HELADIO# 18 is clean, intact and flushes well. IV sites at WENDY# 18 is clean, intact and flushes well. Roni. soft wrist restraint are inplaced. skin is wnl and circulation wnl. safety precautions is mainatined. bed at low position, brakes locked, side rails upX3, hob elevated, bed alarm is on and call light is within reach. will continue to monitor.
[2023-12-05] VITALS (8 sets, daily range): BP systolic 76–98; BP diastolic 58–74; TEMP 97.1–98.5; O2SAT 92–100
--- NOTE | 2023-12-05 04:58 | NUR ---
RN notes Wound care provided as ordered. Pt tolerated well.
--- NOTE | 2023-12-05 06:30 | NUR ---
RN closing notes Pt is resting in bed comfortably. Pt is alert and orientedX2 with episode of confusion. On 4 L NC. No SOB. No S/S of distress noted. IV site at HELADIO# 18 is clean, intact and flushes well. IV sites at WENDY# 18 is clean, intact and flushes well. Roni. soft wrist restraint are inplaced. skin is wnl and circulation wnl. Routine meds were given as ordered. Wound care provided. Kept Pt clean, dry and comfortbale. safety precautions is mainatined. bed at low position, brakes locked, side rails upX3, hob elevated, bed alarm is on and call light is within reach. Will endorse to am nurse for BABS.
[2023-12-05 06:39] LABS: EOSINOPHILS % (AUTO) 0.1 % (0.0-6.0); HEMATOCRIT 26 % (39-51); LYMPHOCYTES # (AUTO) 0.2 K/uL (0.8-4.8); LYMPHOCYTES % (AUTO) 5.3 % (20.0-44.0); MEAN CORPUSCULAR HEMOGLOBIN 32 PG (26.0-33.0); MEAN CORPUSCULAR HGB CONC 34 g/dl (31.0-36.0); MEAN CORPUSCULAR VOLUME 93 fL (80-96); MONOCYTES # (AUTO) 0.1 K/uL (0.1-1.30); MONOCYTES % (AUTO) 2.9 % (2.0-12.0); NEUTROPHILS # (AUTO) 3.8 K/uL (1.8-8.9); NEUTROPHILS % (AUTO) 91.7 % (43.0-81.0); RED BLOOD CELL COUNT(AUTO) 2.81 MIL/uL (4.5-6.0); RED CELL DISTRIBUTION WIDTH 21.1 % (11.5-15.0); WHITE BLOOD COUNT (AUTO) 4.2 K/uL (4.3-11.0)
[2023-12-05 06:42] LABS: ALANINE AMINOTRANSFERASE 29 U/L (12-78); ALBUMIN 1.5 g/dL (3.4-5.0); ALKALINE PHOSPHATASE 72 U/L (46-116); ASPARTATE AMINOTRANSFERASE 23 U/L (15-37); BILIRUBIN,TOTAL 1.3 mg/dL (0.2-1.0); CALCIUM, SERUM 8.6 mg/dL (8.5-10.1); CARBON DIOXIDE 30 mmol/L (21-32); CHLORIDE 110 mmol/L (98-107); CREATININE 0.8 mg/dL (0.6-1.3); GLUCOSE 102 mg/dL (74-106); POTASSIUM 3.6 mmol/L (3.5-5.1); SODIUM SERUM 146 mmol/L (136-145); TOTAL PROTEIN, SERUM 4.2 g/dL (6.4-8.2); UREA NITROGEN, BLOOD 30 mg/dL (7-18)
[2023-12-05 06:59] LABS: APPEARANCE,URINE CLEAR (CLEAR); BILIRUBIN,URINE 1+ (NEGATIVE); BLOOD, URINE TRACE-INTA Ery/uL (NEGATIVE); COLOR,URINE DARK YELLOW (YELLOW); KETONES,URINE 1+ mg/dL (NEGATIVE); LEUKOCYTE ESTERASE ,URINE NEGATIVE (NEGATIVE); NITRITE, URINE NEGATIVE (NEGATIVE); PH,URINE 6.5 (5.0-8.0); PROTEIN,URINE 2+ mg/dl (NEGATIVE); UGLUCOSE NEGATIVE (NEGATIVE)
[2023-12-05 07:02] LABS: OCCULT BLOOD STOOL POSITIVE (NEGATIVE)
[2023-12-05 07:28] LABS: CALCIUM OXALATE CRYSTALS,UR Many /HPF (None Seen); CREATININE, URINE 124.4 MG/DL (30.0-125.0)
[2023-12-05 07:29] LABS: ADD URINE CULTURE NO; BACTERIA,URINE Few /HPF (None Seen); RBC,URINE 0-2 /HPF (0-2); SQUAMOUS EPITHELIAL CELL,UR None Seen /HPF (None Seen); WBC,URINE 0-2 /HPF (0-3)
--- NOTE | 2023-12-05 07:54 | NUR ---
RN MS NOTE OPENING Received patient in bed at 0700 with no s/s of distress noted. Patient is currently on NC at 4LPM with no SOB noted or respiratory distress. Patient is A&Ox2 confused has all current needs met. PAtient noted on soft bilateral wrist restraints. No skin breakdown noted at this time.
--- NOTE | 2023-12-05 08:04 | NUR ---
WOUND CARE FOLLOW UP: PT SEEN UPON REQUEST OF NURSING STAFF FOR BILATERAL ARM SKIN TEARS WITH WEEPING. DISCUSSED SKIN PROTECTION AND WOUND TREATMENT RECOMMENDATIONS WITH NURSING STAFF. PT FOLLOWED BY SURGICAL TEAM OF DR MEHTA AND DR JOHNSON FOR SACRAL WOUND AND HEEL DISCOLORATIONS NOTED TO BE PRESENT ON ADMISSION. MD IN AGREEMENT WITH PLAN OF CARE.
[2023-12-05 08:24] LABS: PLATELET COUNT (AUTO) 38 K/uL (150-450)
[2023-12-05 09:00] LABS: EOSINOPHIL,URINE None Seen
[2023-12-05 09:09] LABS: BAND % (MANUAL) 2 % (0.0-5.0); LYMPHOCYTES % (MANUAL) 4 % (16-48); NEUTROPHILS % (MANUAL) 92 (42-76)
[2023-12-05 09:10] LABS: ANISOCYTOSIS 1+; BASOPHILS % (MANUAL) 0 % (0.0-2.0); EOSINOPHILS % (MANUAL) 0 % (0-4); MONOCYTES % (MANUAL) 2 % (0-11.0); PLATELET ESTIMATE DECREASED
--- NOTE | 2023-12-05 12:00 | NUR ---
RN MS NOTE Patient noted at 95% on 4 LPM will try to titrate down.
--- NOTE | 2023-12-05 13:00 | NUR ---
RN MS NOTE Patient did not tolerate titration of NC at 2 lpm saturation went down to 85% increased oxygen to 4lpm. Noted saturation at 94%
--- NOTE | 2023-12-05 15:00 | NUR ---
RN MS NOTE Patient is in bed with zero s/s of distress noted, he is currently on 4LPM with no SOB or shortness of breath. current needs met no further concerns at this time,
[2023-12-05] MEDS: K PHOS NEUTRAL 250 MG TABLET PO ONE (16:55)
--- NOTE | 2023-12-05 19:24 | NUR ---
RN MS NOTE Patient is in bed with zero s/s of distress noted, he has had all of his needs met no changes noted in his condition. No further concerns noted at this time. All orders noted and carried out no further concerns noted at this time.
[2023-12-06] VITALS (28 sets, daily range): BP systolic 70–129; BP diastolic 40–96; TEMP 90–98.3; O2SAT 88–98
--- NOTE | 2023-12-06 05:15 | NUR ---
closing notes: alert n Addendum: 12/06/23 at 0517 by WEST HANSEN RN UNFINISHED CLOSING NOTES
--- NOTE | 2023-12-06 05:17 | NUR ---
CLOSING NOTES: ALERT AND ORIENTATED x2 WILL FOLOOW SIMPLE DIRECTIONS LUNGS VIA AUSCULTATION CRACKLES AND RHALES 91 % 4 LITERS GOOD ABOUT BEING TURNED FOR A SHORT TIME BUT WILL TURN AND REPOSITION HIMSELF ON TO HIS ABCK ARMS ELEVATED ON PILLOWS THE md SUGGESTED PATIENT REMOVES THE PILLOW DRSSING REAPPLIED ORDERE AND COVERED WITH BURN NET AND THE COTTON SLEEVES NO RESTRAINTS THIS 12 HOURS
[2023-12-06 07:27] LABS: ALANINE AMINOTRANSFERASE 31 U/L (12-78); ALBUMIN 1.5 g/dL (3.4-5.0); ALKALINE PHOSPHATASE 70 U/L (46-116); ASPARTATE AMINOTRANSFERASE 18 U/L (15-37); BILIRUBIN,TOTAL 1.2 mg/dL (0.2-1.0); CALCIUM, SERUM 8.8 mg/dL (8.5-10.1); CARBON DIOXIDE 29 mmol/L (21-32); CHLORIDE 110 mmol/L (98-107); GLUCOSE 92 mg/dL (74-106); PHOSPHORUS 2.9 mg/dL (2.5-4.9); POTASSIUM 3.6 mmol/L (3.5-5.1); SODIUM SERUM 145 mmol/L (136-145); TOTAL PROTEIN, SERUM 4.3 g/dL (6.4-8.2); UREA NITROGEN, BLOOD 32 mg/dL (7-18)
[2023-12-06 07:29] LABS: IRON, SERUM 19 ug/dl (50-175); TOTAL IRON BINDING CAPACITY 133 ug/dl (250-450)
[2023-12-06 07:30] LABS: BASOPHILS % (AUTO) 0.1 % (0.0-2.0); EOSINOPHILS % (AUTO) 0.1 % (0.0-6.0); HEMATOCRIT 26 % (39-51); HEMOGLOBIN 9.1 g/dL (13.5-17.5); LYMPHOCYTES # (AUTO) 0.2 K/uL (0.8-4.8); LYMPHOCYTES % (AUTO) 9.9 % (20.0-44.0); MEAN CORPUSCULAR HEMOGLOBIN 32 PG (26.0-33.0); MEAN CORPUSCULAR HGB CONC 35 g/dl (31.0-36.0); MEAN CORPUSCULAR VOLUME 94 fL (80-96); MONOCYTES % (AUTO) 3.1 % (2.0-12.0); NEUTROPHILS # (AUTO) 1.3 K/uL (1.8-8.9); NEUTROPHILS % (AUTO) 86.8 % (43.0-81.0); RED BLOOD CELL COUNT(AUTO) 2.82 MIL/uL (4.5-6.0); RED CELL DISTRIBUTION WIDTH 21.4 % (11.5-15.0)
--- NOTE | 2023-12-06 07:30 | NUR ---
grinder operator opening note patient is a/o x2, calm, cooperative, on med surg status , diaper, in no respiratory distress, in no pain, patient is fall risk and bed alarm on, all side rails up, on puree diet on 2l NC saturation at 95%.
[2023-12-06] MEDS: IPRATROPIUM NEB FS 0.5 MG/2.5 ML AMPUL.NEB NEB SCH (07:45)
[2023-12-06] MEDS: ALBUTEROL FS 2.5 MG/3 ML VIAL.NEB NEB SCH (07:45)
[2023-12-06 08:04] LABS: PLATELET COUNT (AUTO) 32 K/uL (150-450); WHITE BLOOD COUNT (AUTO) 1.5 K/uL (4.3-11.0)
[2023-12-06 08:06] LABS: FERRITIN 2148 ng/mL (8-388)
--- NOTE | 2023-12-06 09:15 | NUR ---
machine adjuster helper note patients blood pressure has risen to 94/55, hr 68 after giving 10 mg midorine. will continue to monitor.
--- NOTE | 2023-12-06 11:15 | NUR ---
payroll consultant note lab called with critical result, platelets are 32 and wbc is 1.5, and ferritin is 2148 high, call put out to dr. Grier and SHERI. there was no doctor list otherwise i would have contacted the sooner. told dr. grier plavix was held for 0900 medications, he is aware.
[2023-12-06 11:26] LABS: BAND % (MANUAL) 4 % (0.0-5.0); BASOPHILS % (MANUAL) 0 % (0.0-2.0); EOSINOPHILS % (MANUAL) 0 % (0-4); LYMPHOCYTES % (MANUAL) 3 % (16-48); MONOCYTES % (MANUAL) 2 % (0-11.0); NEUTROPHILS % (MANUAL) 91 (42-76)
[2023-12-06 11:27] LABS: ANISOCYTOSIS 1+; OVALOCYTES 1+; PLATELET ESTIMATE DECREASED
--- NOTE | 2023-12-06 11:27 | NUR ---
CHARGE NURSE NOTES DR. REYES NOTIFIED ABOUT PATIENT'S PLATELET AT 32 AND WBC LEVEL OF 1.5. FERRITIN LEVEL IS 2148. PLAVIX HELD. NNO
[2023-12-06] MEDS: DOCUSATE SODIUM 100 MG CAPSULE PO SCH (16:27)
--- NOTE | 2023-12-06 16:44 | NUR ---
LITHOPRESS OPERATOR NOTES DR. REYES WAS NOTIFIED BY WINTER ROBBINS RE PT'S BP AT 70/48, TAKEN MANUALLY. MIDODRINE GIVEN, NO IV FLUIDS RUNNING. NO ANSWER.
--- NOTE | 2023-12-06 16:44 | NUR ---
economics lecturer note patients blood pressure is 70/48 and manually taken to confirm reading , midodrine 10 mg orally given. will monitor for bp elevation.
--- NOTE | 2023-12-06 16:45 | NUR ---
door slinger note a call put out to dr. grier regarding blood pressure of 70/58 and awaiting call back for new orders. midorine 10 mg given at 0900 and 1200 and 1600.
--- NOTE | 2023-12-06 17:15 | NUR ---
sampler radioactive waste note blood pressure has risen to 85/66, hr 88, will continue to monitor.
--- NOTE | 2023-12-06 17:25 | NUR ---
PRODUCTION CONTROL ANALYST NOTES DR. REYES NOTIFIED BP WAS AT 65/45 MANUAL. MIDODRINE GIVEN AN HOUR AGO. ASKING FOR A BOLUS OF NS 500 ML NOW. NO ANSER.
--- NOTE | 2023-12-06 17:30 | NUR ---
pharmacy aide note post assessment of midodrine 10 mg given, and rechecked manually and the bp is 68/48, Dr grier contacted for any new orders and communicated he has no IV fluids, awaiting call back with new orders.
--- NOTE | 2023-12-06 17:45 | NUR ---
order dispatcher note blood pressure has risen to 80/52 hr 92, resp 20, 02 sat 92 on 2L, patient is responsive and stable and responsive to word and stimuli.
--- NOTE | 2023-12-06 18:08 | NUR ---
cloud consultant note called [facility] and left a voicemail for dr. grier to call back for patients blood pressure 68/48, manually taken and awaiting call back for orders to raise BP. patient is responsive and answers questions, very soft spoken and rectal temp taken and is 93.0 F, taken with a rectal thermometer. warm blankets applied and lowered head of bed and elevated legs
--- NOTE | 2023-12-06 18:30 | NUR ---
solutions executive cloud sales closing note patient is a/o x2, able to communicate and very soft spoken and states, " i feel well", legs elevated and head down, bp, 75/48, hr 107, resp 20, temp rectal 93.0 F, 91 % on 2 l. in no respiratory distress and in no pain, patient responds to voice and bed in locked and in lowest position. still awaiting call back from Dr. grier.
--- NOTE | 2023-12-06 19:15 | NUR ---
RN NOTE RECEIVED PT FOR CONTINUITY OF CARE. PATIENT LETHARGIC AND DROWSY ON 4L OF 02 VIA NC SATURATING @89%. SBP <90, CHECKED TREND FOR THE AM SHIFT BEEN <90 SBP, PER REPORT MD AWARE ABOUT CURRENT STATUS AND CRITICAL LABS FROM AM SHIFT(DR. REYES) NO NEW ORDERS. WITH IV ACCESS PATENT, INTACT AND FLUSHING WELL. WILL ENSURE SAFETY MEASURES WITHIN THE SHIFT. PATIENT BED ALARM IS ON. HEAD OF BED ELEVATED. BED IS LOCKED, IN LOWEST POSITION AND SIDE RAILS UP. CALL LIGHT WITHIN REACH OF THE PATIENT. WILL CONTINUE TO MONITOR AND REASSESS FOR ANY CHANGES AND WILL CARRY OUT ANY ONGOING AND ACTIVE MD ORDER.
--- NOTE | 2023-12-06 19:20 | NUR ---
RN NOTE PT ASSESSED AGAIN STILL VERY WEAK AND LETHARGIC. SBP <90, MANUALLY CHECKED TOO STILL <90. ALSO SAT <90%ONCALL AWARE. ( DR. AMBROSE) STATUS UPDATE GIVEN SBP RUNNING LOW <90 FOR THE AM SHIFT AM AWARE. (DR. REYES) NO ORDERS GIVEN. DR. AMBROSE ACKNOWLEDGED ORDER GIVEN FOR BOLUS NS 500 CC AND STAT ABG. RN AKCNOWLEDGED. WILL CARRY OUT AND MONITOR. Addendum: 12/06/23 at 2014 by ANJELICA FUNG RN BOLUS DONE; SBP STILL <80 76/54
[2023-12-06] MEDS: IV NS 0.9% 500 ML IV ONE (19:45)
--- NOTE | 2023-12-06 19:50 | NUR ---
MARIN NOTE CALLED RAPID RESPONSE. BLOOD SUGAR: 84. Addendum: 12/06/23 at 2004 by ANJELICA FUNG RN SBP STILL <80. MD DE PAZ (Nichole AMBROSE NP) ACKNOWLEDGED. TRANSFER TO ICU AND START PRESSORS; LEVO. RN ACKNOWLEDGED. WILL CARRY OUT
--- NOTE | 2023-12-06 20:20 | NUR ---
RN NOTE PT TRANSFERRED TO ICU RM 261 VIA ACLS PROTOCOL. BEDSIDE REPORT GIVEN TO MARIN FUNEZ FOR BABS.
--- NOTE | 2023-12-06 20:28 | NUR ---
ICU/RN: PT ORAL TEMP 98.0 WARMING MEASURES INITIATED. SHAINA ROBERSON APPLIED.
--- NOTE | 2023-12-06 20:30 | NUR ---
SEAMER PANTY HOSE HAND OFF REPORT RECEIVE BED SIDE REPORT FROM ADELA FUNES FROM [facility]. PT CAME IN BED. PT WITH EYES CLOSE, LETHARGIC, RESPONDS TO PAIN. PT CONNECTED TO THE MONITOR, AFIB BP @ 81/54, P93, R23, O2 96% @ 3LPM. PT TEMP @ 90F ORAL. WARMING MEASURES PROVIDED. SAFETY MEASURES IN PLACE, BED IN LOW, LOCKED POSITION, CALL LIGHT WITHIN EASY REACH.
[2023-12-06] MEDS: NOREPINEPHRINE 8MG/250ML RTU 250 ML IV ONE (20:32)
[2023-12-06] MEDS: NOREPINEPHRINE 8 MG in IV D5W 242 ML IV PRN (20:32)
--- NOTE | 2023-12-06 20:33 | NUR ---
ICU/RN: RECEIVED PT IN ROOM 261. CONNECTED TO MONITOR. LEVOPHED INITIATED PER PROTOCOL.
--- NOTE | 2023-12-06 20:45 | NUR ---
ICU/RN: PER NURSING NETWORK TECHNICAL ANALYST DAPHNE NO MIDLINE NURSE AVAILABLE UNTIL TOMORROW.
[2023-12-06 21:21] LABS: ABG BASE EXCESS -1.7 mmol/L (-2.0-2.0); ABG OXYGEN SATURATION 98.8 % (92.0-98.5); ABG PCO2 44.5 mmHg (35.0-45.0); ABG PH 7.349 (7.340-7.440); ABG PO2 324.7 mmHg (75.0-100.0); COHb 0.3 % (0.5-1.5); MetHb 0.4 % (0.0-1.5); O2Hb 98.1 % (94.0-97.0); SITE, ABG Left Brachial; VENT MODE, BG NRB 15LPM
[2023-12-06] MEDS: SENNOSIDES 8.6 MG TABLET PO SCH (22:00)
--- NOTE | 2023-12-06 22:18 | NUR ---
FABRICATION WELDER NOTE LIPITOR 40MG AND SENOKOT 8.6MG PO HELD D/T PT LETHARGIC, UNABLE TO FOLLOW COMMANDS, HELD FOR RISK FOR ASPIRATION.
[2023-12-07] VITALS (107 sets, daily range): BP systolic 77–141; BP diastolic 49–128; TEMP 96.2–97.7; O2SAT 86–100
[2023-12-07 04:54] LABS: HEMATOCRIT 27 % (39-51); HEMOGLOBIN 9.3 g/dL (13.5-17.5); LYMPHOCYTES # (AUTO) 0.1 K/uL (0.8-4.8); LYMPHOCYTES % (AUTO) 2.4 % (20.0-44.0); MEAN CORPUSCULAR HEMOGLOBIN 32 PG (26.0-33.0); MEAN CORPUSCULAR HGB CONC 34 g/dl (31.0-36.0); MEAN CORPUSCULAR VOLUME 94 fL (80-96); MONOCYTES # (AUTO) 0.1 K/uL (0.1-1.30); MONOCYTES % (AUTO) 1.7 % (2.0-12.0); NEUTROPHILS # (AUTO) 5.6 K/uL (1.8-8.9); NEUTROPHILS % (AUTO) 95.9 % (43.0-81.0); RED BLOOD CELL COUNT(AUTO) 2.88 MIL/uL (4.5-6.0); RED CELL DISTRIBUTION WIDTH 22.3 % (11.5-15.0); WHITE BLOOD COUNT (AUTO) 5.8 K/uL (4.3-11.0)
[2023-12-07 04:55] LABS: PLATELET COUNT (AUTO) 41 K/uL (150-450)
--- NOTE | 2023-12-07 04:59 | NUR ---
DIONNA AMBROSE COATING LINE WORKER MADE AWARE OF PT PLATELET OF 41 AND ALBUMIN OF 1.4. AWAITING FOR ORDERS AT THIS TIME Addendum: 12/07/23 at 0613 by DEE DEE TAVERAS RN RECEIVE NEW ORDER OF ALBUMIN 25% 25GM IV Q 6 X 4 BAGS
[2023-12-07 05:16] LABS: ALANINE AMINOTRANSFERASE 32 U/L (12-78); ALKALINE PHOSPHATASE 76 U/L (46-116); ASPARTATE AMINOTRANSFERASE 26 U/L (15-37); BILIRUBIN,TOTAL 1.5 mg/dL (0.2-1.0); CALCIUM, SERUM 8.8 mg/dL (8.5-10.1); CARBON DIOXIDE 28 mmol/L (21-32); CHLORIDE 110 mmol/L (98-107); CREATININE 1.2 mg/dL (0.6-1.3); GLUCOSE 70 mg/dL (74-106); MAGNESIUM 2.1 mg/dL (1.8-2.4); PHOSPHORUS 3.2 mg/dL (2.5-4.9); POTASSIUM 3.8 mmol/L (3.5-5.1); SODIUM SERUM 143 mmol/L (136-145); TOTAL PROTEIN, SERUM 4.3 g/dL (6.4-8.2); UREA NITROGEN, BLOOD 39 mg/dL (7-18)
[2023-12-07 05:18] LABS: ALBUMIN 1.4 g/dL (3.4-5.0)
[2023-12-07 05:57] LABS: ANISOCYTOSIS 1+; BAND % (MANUAL) 7 % (0.0-5.0); LYMPHOCYTES % (MANUAL) 3 % (16-48); MONOCYTES % (MANUAL) 1 % (0-11.0); NEUTROPHILS % (MANUAL) 89 (42-76); PLATELET ESTIMATE DECREASED
[2023-12-07 05:58] LABS: OVALOCYTES 1+; TOXIC GRANULATION 1+
[2023-12-07] MEDS: ALBUMIN 25% 25 GM in PREMIX 1 EA IV SCH (06:37)
[2023-12-07] MEDS: ALBUMIN 25% 100 ML IV ONE (06:47)
--- NOTE | 2023-12-07 06:47 | NUR ---
100 ML ALBUMIN 25%, 25GM OVERRIDE BY CHARGE NURSE ALMA DELIA.
--- NOTE | 2023-12-07 07:00 | NUR ---
RN NOTE PATIENT IS ALERT BUT CONFUSED, OPENS EYES SPONTANEOUSLY, PURPOSEFUL MOVEMENT, PULLING AT LINES, CLOTHING, BLANKETS, COMBATIVE AFIB 100-110 SATURATING 92% ON 3LNC RR 27 BP 95/77 ON LEVOPHED 0.2MCG/KG/MIN WILL CONTINUE TO MONITOR
--- NOTE | 2023-12-07 08:00 | NUR ---
PATIENT REFUSING BREAKFAST
--- NOTE | 2023-12-07 09:21 | NUR ---
PATIENT REFUSING MEDS, ATTEMPTED TO CRUSH AND PLACE IN APPLESAUCE, PATIENT SPIT IT OUT OFFERED BREAKFAST AGAIN PATIENT REFUSING
[2023-12-07] MEDS: PHENYLEPHRINE 50 MG in IV NS 0.9% 245 ML IV PRN (11:06)
--- NOTE | 2023-12-07 11:45 | NUR ---
RN NOTES BILATERAL ARMS SWOLLEN. LEFT ARM ULTRASOUND PERFORMED TO IDENTIFY ADEQUATE VEIN FOR MIDLINE INSERTION. LEFT ARM PREPPED USING STERILE TECHNIQUE. POWERGLIDE 18G/10CM WAS INSERTED AT LEFT BASILIC VEIN WITH EASE, GOOD NON PULSATILE BLOOD RETURN AND SECURED WITH INTERLOCK DEVICE. DRESSED USING NORMAL STERILE FASHION. EACH PORT WAS ASPIRATED WITH VENOUS BLOOD AND EACH PORT WAS FLUSHED WITH 10ML OF NORMAL SALINE. PROCEDURE WELL TOLERATED BY THE PT. SUPERVISED BY DR.EM CROW PhD. ENDORSED TO BEDSIDE MARIN MOTA
--- NOTE | 2023-12-07 12:50 | NUR ---
PATIENT REFUSING MEDS AND LUNCH
[2023-12-07] MEDS: MEROPENEM 1 G in IV NS 0.9% 100 ML IV SCH (14:37)
--- NOTE | 2023-12-07 17:00 | NUR ---
REFUSED DINNER, REFUSING MEDS, SPIT EVENING MEDS OUT, CRUSHED MEDS AND PUT MIDODRINE IN APPLE SAUCE, HE SPIT THAT OUT, DID IT AGAIN, AND HE TOOK IT.
--- NOTE | 2023-12-07 17:30 | NUR ---
URINE, AND SPUTUM, COLLECTED, SENT TO LAB
[2023-12-07 18:30] LABS: APPEARANCE,URINE CLEAR (CLEAR); BILIRUBIN,URINE 1+ (NEGATIVE); BLOOD, URINE NEGATIVE Ery/uL (NEGATIVE); COLOR,URINE YELLOW (YELLOW); KETONES,URINE NEGATIVE (NEGATIVE); LEUKOCYTE ESTERASE ,URINE NEGATIVE (NEGATIVE); NITRITE, URINE NEGATIVE (NEGATIVE); PROTEIN,URINE 1+ mg/dl (NEGATIVE); UGLUCOSE NEGATIVE (NEGATIVE)
--- NOTE | 2023-12-07 18:31 | NUR ---
RN NOTE PATIENT IS AXOX1, CONFUSED, OCCASIONALLY COMBATIVE ON 6L NC SATURATING 94%,RR 18 POOR WAVEFORM, MULTIPLE ATTEMPTS TO GET A BETTER WAVEFORM WERE UNSUCCESSFUL AFIB 95 BP 103/74 ON NEOSYNEPHERINE 3MCG/KG/MIN ALL WOUND DRESSINGS CHANGED ORDERED
[2023-12-07 19:18] LABS: ADD URINE CULTURE NO; BACTERIA,URINE None seen /HPF (None Seen); RBC,URINE 0-2 /HPF (0-2); SQUAMOUS EPITHELIAL CELL,UR 0-2 /HPF (None Seen); WBC,URINE 0-2 /HPF (0-3)
[2023-12-07 19:19] LABS: MUCUS,URINE Few /LPF (None Seen); URINE AMORPHOUS URATE Few /HPF (None Seen)
--- NOTE | 2023-12-07 19:20 | NUR ---
ASSOCIATE DIRECTOR REGULATORY AFFAIRS NOTE RECEIVE PT IN BED WITH EYES CLOSE. LETHARGIC, OPENS EYES TO NAME AND TACTILE STIMULI. RESPIRATION TACHYPNEIC O2 SAT 88% @ 6LPM NC. AFIB ON THE MONITOR HR 101. IV ACCESS HELADIO MIDLINE IN PLACE RUNNING RUI @ 3MCG/KG/MIN, BP @ 90/72. BILATERAL SOFT WRIST RESTRAINTS OFF. SAFETY MEASURES IN PLACE. BED IN LOW, LOCKED POSITION. CALL LIGHT WITHIN EASY REACH.
[2023-12-07 19:25] LABS: EOSINOPHIL,URINE None Seen
--- NOTE | 2023-12-07 22:42 | NUR ---
MESSAGING ARCHITECT NOTE PT SPITS OUT SENOKOT AND ATORVASTATIN.
--- NOTE | 2023-12-07 23:03 | NUR ---
BILLET CHECKER NOTE PT WITH CONGESTION AND AUDIBLE CRACKLES , NT SUCTION DONE BY RT WITH NOT MUCH IMPROVEMENT. SEED MILL SUPERINTENDENT DIONNA AMBROSE MADE AWARE WITH NEW ORDER OF LASIX 40MG IVP X 1, BNP AND CXR IN AM. ORDERS NOTED AND CARRIED OUT.
[2023-12-07] MEDS: FUROSEMIDE 40 MG/4 ML VIAL IV ONE (23:41)
[2023-12-08] VITALS (99 sets, daily range): BP systolic 60–145; BP diastolic 47–95; TEMP 97.1–97.8; O2SAT 87–100
[2023-12-08 04:52] LABS: HEMATOCRIT 24 % (39-51); HEMOGLOBIN 8.1 g/dL (13.5-17.5); LYMPHOCYTES # (AUTO) 0.1 K/uL (0.8-4.8); LYMPHOCYTES % (AUTO) 2.3 % (20.0-44.0); MEAN CORPUSCULAR HEMOGLOBIN 33 PG (26.0-33.0); MEAN CORPUSCULAR HGB CONC 34 g/dl (31.0-36.0); MEAN CORPUSCULAR VOLUME 96 fL (80-96); MONOCYTES # (AUTO) 0.1 K/uL (0.1-1.30); MONOCYTES % (AUTO) 2.3 % (2.0-12.0); NEUTROPHILS # (AUTO) 5.7 K/uL (1.8-8.9); NEUTROPHILS % (AUTO) 95.4 % (43.0-81.0); RED BLOOD CELL COUNT(AUTO) 2.47 MIL/uL (4.5-6.0); RED CELL DISTRIBUTION WIDTH 23.5 % (11.5-15.0)
[2023-12-08 04:54] LABS: PLATELET COUNT (AUTO) 30 K/uL (150-450)
[2023-12-08 05:10] LABS: ALANINE AMINOTRANSFERASE 29 U/L (12-78); ALBUMIN 3.1 g/dL (3.4-5.0); ALKALINE PHOSPHATASE 115 U/L (46-116); ASPARTATE AMINOTRANSFERASE 25 U/L (15-37); BILIRUBIN,TOTAL 2.4 mg/dL (0.2-1.0); CALCIUM, SERUM 8.9 mg/dL (8.5-10.1); CARBON DIOXIDE 28 mmol/L (21-32); CHLORIDE 110 mmol/L (98-107); CREATININE 1.2 mg/dL (0.6-1.3); GLUCOSE 90 mg/dL (74-106); MAGNESIUM 2.1 mg/dL (1.8-2.4); NT-PRO BNP 7632 pg/mL (0-125); PHOSPHORUS 4.2 mg/dL (2.5-4.9); POTASSIUM 3.6 mmol/L (3.5-5.1); SODIUM SERUM 148 mmol/L (136-145); TOTAL PROTEIN, SERUM 5.3 g/dL (6.4-8.2); UREA NITROGEN, BLOOD 39 mg/dL (7-18)
--- NOTE | 2023-12-08 05:25 | NUR ---
RT NOTE PT REQUIRES FREQUENT SUCTIONING, MODERATE THICK RED BLOODY AND SALDANA SECRETIONS NOTED. PT PLACED ON SIMPLE MASK @ 10 LPM DUE TO LOW SPO2. RN DEE DEE NOTIFIED AND IS AWARE.
--- NOTE | 2023-12-08 05:27 | NUR ---
relayed pt platelets of 30 to DIONNA AMBROSE NP, RECEIVE NEW ORDER TO TRANSFUSE 2 UNITS PLATELETS
[2023-12-08 06:02] LABS: ANISOCYTOSIS 2+; BAND % (MANUAL) 9 % (0.0-5.0); HYPOCHROMASIA 1+; LYMPHOCYTES % (MANUAL) 2 % (16-48); MONOCYTES % (MANUAL) 3 % (0-11.0); NEUTROPHILS % (MANUAL) 86 (42-76); PLATELET ESTIMATE DECREASED
[2023-12-08 06:03] LABS: OVALOCYTES 1+
--- NOTE | 2023-12-08 07:00 | NUR ---
RN NOTE PATIENT IS AXOX1, CONFUSED, OCCASIONALLY COMBATIVE ON 6L NC SATURATING 90%,RR 22 AFIB 104 BP 103/65 ON NEOSYNEPHERINE 3MCG/KG/MIN WILL CONTINUE TO MONITOR
[2023-12-08] MEDS: PHENYLEPHRINE 100 MG in IV NS 0.9% 240 ML IV PRN (07:12)
--- NOTE | 2023-12-08 08:30 | NUR ---
PATIENT INTUBATED BY ER PHYSICIAN PER MD PELEG FOR INSUFFICIENT AIRWAY CLEARANCE AND LOW SATURATION
--- NOTE | 2023-12-08 08:45 | NUR ---
NG TUBE INSERTED STAT CXR ORDERED TO CONFIRM PLACEMENT
--- NOTE | 2023-12-08 09:05 | NUR ---
CXR CONFIRM PLACEMENT OF ET AND NG DIETARY CONSULT FOR TUBE FEEDING PLACED
[2023-12-08] MEDS: PROPOFOL 100 ML IV PRN (09:22)
[2023-12-08] MEDS ORDERED: BISACODYL (5 MG) 5 MG TABLET.DR GT PRN (09:39)
[2023-12-08] MEDS ORDERED: TRAZODONE 50 MG TABLET GT PRN (09:39)
[2023-12-08] MEDS: TAMSULOSIN 0.4 MG CAP.SR.24H GT SCH (09:58)
[2023-12-08] MEDS ORDERED: ACETAMINOPHEN 650 MG/20.3 ML UDC GT PRN (10:00)
[2023-12-08] MEDS: PANTOPRAZOLE 40 MG VIAL IV SCH (10:10)
[2023-12-08] MEDS: DOCUSATE SODIUM LIQ 100 MG/10 ML UDC NG SCH (10:10)
[2023-12-08] MEDS ORDERED: ETOMIDATE 2 MG/ML VIAL IV ONE (11:44)
--- NOTE | 2023-12-08 13:00 | NUR ---
TUBE FEEDING STARTED 20ML/HR TO INCREASE Q 6 BY 10ML FOR A GOAL RATE OF 60 WILL CONTINUE TO MONITOR
[2023-12-08] MEDS: MIDODRINE HCL (5MG) 5 MG TABLET GT SCH ×2 (13:52→21:29)
[2023-12-08] MEDS: JEVITY 1.2 CAL 1,000 ML BOTTLE GT PRN (14:10)
--- NOTE | 2023-12-08 17:56 | NUR ---
RT PATIENT WAS ORALLY INTUBATED TODAY AND PLACED ON [facility] VENT WITH ORDERED SETTING. POST ABG RESULTS VENT SETTING ADJUSTED PER DR PATEL. ALARMS SET + AUDIBLE. AMBU BAG AT HOB. Addendum: 12/08/23 at 1800 by CITLALLI MORALES RT Amended: Links added.
--- NOTE | 2023-12-08 18:58 | NUR ---
RN NOTE PATIENT IS INTUBATED AND SEDATED OPENS EYES AND LOCALIZES PAIN AC 16, TV 450, FIO2 70 RR 17 SATURATING 99% AFIB 92 BP 97/78 REPORT GIVEN TO FRENCH PASTRY COOK FOR BABS
--- NOTE | 2023-12-08 19:15 | NUR ---
TEST KITCHEN HOME ECONOMIST NOTE RECEIVE PT IN BED WITH EYES CLOSE. RESPONSE TO PAIN. PT ETT TO VENT AC 16, VT 450, FIO2 70 PEEP OFF. PT SATTING 96%. PT AFIB ON THE MONITOR HR 92. NGT IN PLACE @ LEFT NARE 65 CM RUNNING JEVITY 1.2 @ 20ML/HR. IV ACCESS WENDY MID LINE IN PLACE WITH TRIPLE LUMEN RUNNING RUI @ 3 MGC/KG/MIN, PROPOFOL @ 15MCG/KG/MIN. IV ACCESS HELADIO ML ON IN PLACE, SL. BILATERAL SOFT WRIST RESTRAIN IN PLACE WITH GOOD CIRCULATION OBSERVED. SAFETY MEASURES IN PLACE, BED IN LOW, LOCKED POSITION. HOB ELEVATED. CALL LIGHT WITHIN EASY REACH.
[2023-12-08] MEDS: ATORVASTATIN 40 MG TABLET GT SCH (21:29)
[2023-12-08] MEDS: SENNOSIDES 8.6 MG TABLET GT SCH (21:29)
[2023-12-09] VITALS (85 sets, daily range): BP systolic 81–120; BP diastolic 53–92; TEMP 97–97.1; O2SAT 93–100
[2023-12-09 04:27] LABS: BASOPHILS % (AUTO) 0.1 % (0.0-2.0); EOSINOPHILS % (AUTO) 0.3 % (0.0-6.0); HEMATOCRIT 27 % (39-51); HEMOGLOBIN 8.8 g/dL (13.5-17.5); LYMPHOCYTES # (AUTO) 0.2 K/uL (0.8-4.8); LYMPHOCYTES % (AUTO) 6.1 % (20.0-44.0); MEAN CORPUSCULAR HEMOGLOBIN 31 PG (26.0-33.0); MEAN CORPUSCULAR HGB CONC 32 g/dl (31.0-36.0); MEAN CORPUSCULAR VOLUME 98 fL (80-96); MONOCYTES % (AUTO) 1.3 % (2.0-12.0); NEUTROPHILS # (AUTO) 3.5 K/uL (1.8-8.9); NEUTROPHILS % (AUTO) 92.2 % (43.0-81.0); RED CELL DISTRIBUTION WIDTH 23.7 % (11.5-15.0); WHITE BLOOD COUNT (AUTO) 3.7 K/uL (4.3-11.0)
[2023-12-09 04:31] LABS: PLATELET COUNT (AUTO) 35 K/uL (150-450)
[2023-12-09 04:39] LABS: ALANINE AMINOTRANSFERASE 29 U/L (12-78); ALBUMIN 2.2 g/dL (3.4-5.0); ALKALINE PHOSPHATASE 96 U/L (46-116); ASPARTATE AMINOTRANSFERASE 17 U/L (15-37); CALCIUM, SERUM 8.3 mg/dL (8.5-10.1); CARBON DIOXIDE 30 mmol/L (21-32); CHLORIDE 114 mmol/L (98-107); CREATININE 1.4 mg/dL (0.6-1.3); GLUCOSE 106 mg/dL (74-106); PHOSPHORUS 3.9 mg/dL (2.5-4.9); POTASSIUM 3.4 mmol/L (3.5-5.1); SODIUM SERUM 152 mmol/L (136-145); TOTAL PROTEIN, SERUM 4.3 g/dL (6.4-8.2); UREA NITROGEN, BLOOD 47 mg/dL (7-18)
[2023-12-09 04:44] LABS: ANISOCYTOSIS 1+; BAND % (MANUAL) 2 % (0.0-5.0); BASOPHILS % (MANUAL) 0 % (0.0-2.0); EOSINOPHILS % (MANUAL) 0 % (0-4); LYMPHOCYTES % (MANUAL) 9 % (16-48); MONOCYTES % (MANUAL) 4 % (0-11.0); NEUTROPHILS % (MANUAL) 85 (42-76); PLATELET ESTIMATE DECREASED
[2023-12-09 04:46] LABS: D-DIMER 1.61 mg/L(FEU (0.17-0.50); INR 1.35 (0.91-1.10)
--- NOTE | 2023-12-09 05:00 | NUR ---
BIOSTATISTICS TEACHER NOTE OPERATIONS EXECUTIVE DIONNA AMBROSE MADE AWARE OF PT PLATELET OF 35. NO NEW ORDERS
--- NOTE | 2023-12-09 07:00 | NUR ---
RN NOTE PATIENT IS INTUBATED AND SEDATED OPENS EYES AND LOCALIZES PAIN AC 16, TV 450, FIO2 70 RR 19 SATURATING 97% AFIB 91 BP 98/75 ON NEOSYNEPHERINE 3MCG/KG/MIN LEVOPHED 0.1MCG/KG/MIN PROPOFOL 20MCG/KG/MIN URINE TO PUREWICK WILL CONTINUE TO MONITOR
--- NOTE | 2023-12-09 08:00 | NUR ---
RT POST ABG RESULTS, PER DR ADRIAN ORDER VT INCREASED TO 500. MARIN COHEN NOTIFIED Addendum: 12/09/23 at 1038 by CITLALLI MORALES RT Amended: Links added.
[2023-12-09] MEDS: ASCORBIC ACID 500 MG TABLET GT SCH (09:53)
[2023-12-09] MEDS: ZINC SULFATE 220 MG CAPSULE GT SCH (09:54)
[2023-12-09] MEDS: MULTIVITAMIN/LUTEIN/MINERALS 1 TAB GT SCH (09:55)
[2023-12-09] MEDS: CLOPIDOGREL BISULFATE 75 MG TABLET GT SCH (09:58)
[2023-12-09] MEDS: ASPIRIN 81 MG TAB.CHEW GT SCH (09:59)
[2023-12-09] MEDS: METOCLOPRAMIDE HCL 10 MG/2 ML VIAL IV SCH (10:58)
[2023-12-09] MEDS: POTASSIUM CHLORIDE 20 MEQ POWDER PACKET NG SCH (11:56)
[2023-12-09 15:54] LABS: HIV-1 p24 ANTIGEN NON REACTIVE (NONREACTIVE); HIV-1/2 ANTIBODY NON REACTIVE (NONREACTIVE)
[2023-12-09 16:56] LABS: ABG BASE EXCESS 0.6 mmol/L (-2.0-3.0); ABG OXYGEN SATURATION 86.1 % (94.0-98.0); ABG PCO2 49.1 mmHg (35.0-48.0); ABG PH 7.351 (7.350-7.450); ABG PO2 56.9 mmHg (83.0-108.0); ABG TOTAL HEMOGLOBIN 9.3 G/dL (13.5-17.5); AaDO2 316.9 mmHg; COHb 1.1 % (0.5-1.5); MetHb 0.3 % (0.0-1.5); O2Hb 84.9 % (94.0-97.0); SITE, ABG Right Radial
[2023-12-09 16:57] LABS: ABG BASE EXCESS -0.4 mmol/L (-2.0-3.0); ABG OXYGEN SATURATION 88.5 % (94.0-98.0); ABG PCO2 52.2 mmHg (35.0-48.0); ABG PH 7.317 (7.350-7.450); ABG PO2 62.1 mmHg (83.0-108.0); ABG TOTAL HEMOGLOBIN 9.9 G/dL (13.5-17.5); AaDO2 308.3 mmHg; COHb 0.6 % (0.5-1.5); MetHb 0.3 % (0.0-1.5); O2Hb 87.7 % (94.0-97.0); SITE, ABG Right Radial
--- NOTE | 2023-12-09 18:58 | NUR ---
RN NOTE PATIENT IS INTUBATED AND SEDATED OPENS EYES AND LOCALIZES PAIN AC 16, TV 500, FIO2 70 RR 18 SATURATING 99% AFIB 100 BP 97/76 ON NEOSYNEPHERINE 3MCG/KG/MIN LEVOPHED 0.1MCG/KG/MIN PROPOFOL 20MCG/KG/MIN JEVITY 1.2 RUNNING 40ML/HR 80ML RESIDUAL AT 1600 URINE TO PUREWICK 400ML REPORT GIVEN TO HEALTH ASSOCIATE FOR BABS
--- NOTE | 2023-12-09 19:15 | NUR ---
PAINT MAKER NOTE RECEIVE PT IN BED WITH EYES CLOSE, SEDATED. RESPONSE TO DEEP PAIN. PT ETT TO VENT AC 16, VT 500, FIO2 60 PEEP OFF. PT SATTING 100%. PT AFIB ON THE MONITOR HR 114. NGT IN PLACE @ LEFT NARE 65 CM RUNNING JEVITY 1.2 @ 40ML/HR. IV ACCESS WENDY MID LINE IN PLACE WITH TRIPLE LUMEN RUNNING RUI @ 3 MGC/KG/MIN, LEVO @ 0.1MCG/KG/MIN, PROPOFOL TITRATE TO 15MCG/KG/MIN. IV ACCESS HELADIO ML ON IN PLACE, SL. BILATERAL SOFT WRIST RESTRAIN IN PLACE WITH GOOD CIRCULATION OBSERVED. SAFETY MEASURES IN PLACE, BED IN LOW, LOCKED POSITION. HOB ELEVATED. CALL LIGHT WITHIN EASY REACH.
--- NOTE | 2023-12-09 20:15 | NUR ---
REPORT GIVEN TO MARIN PEREZ FOR BABS. RUI @ 3MCG/KG/MIN, LEVO @ 0.08 @ MCG/KG/MIN, PROPOFOL @ 15MCG/KG/MIN. JEVITY @ 40ML/HR VIA NGT LEFT NARE
--- NOTE | 2023-12-09 21:28 | NUR ---
OILER AND GREASER. INITIAL ASSESSMENT. RECEIVED THE PT REST IN BED. ORALLY INTUBATED. SEDATED WITH PROPOFOL. ETT 7.5, LIP 22CMS, TV 500,AC 16, FIO2 60%. SAT 99%. NO ACUTE DISTRESS NOTED. EDGE STRIPPER SHOWING A FIB. REMAINING SAME VENT SETTINGS TOLERATED WELL. NGT FEEDING ON. CONDOM CATH INTACT. IV RT AND LT UPPER ARM MID LINE. PT IS ON LEVO AND RUI. HOB ELEVATED. WILL CONTINUE TO MONITOR VITALS.
[2023-12-10] VITALS (94 sets, daily range): BP systolic 61–115; BP diastolic 47–90; TEMP 96.6–97.8; O2SAT 88–100
[2023-12-10 04:27] LABS: CALCIUM, SERUM 7.7 mg/dL (8.5-10.1); CARBON DIOXIDE 25 mmol/L (21-32); CHLORIDE 116 mmol/L (98-107); CREATININE 1.4 mg/dL (0.6-1.3); GLUCOSE 121 mg/dL (74-106); POTASSIUM 4.1 mmol/L (3.5-5.1); SODIUM SERUM 152 mmol/L (136-145); UREA NITROGEN, BLOOD 52 mg/dL (7-18)
[2023-12-10 04:41] LABS: BASOPHILS % (AUTO) 0.1 % (0.0-2.0); EOSINOPHILS % (AUTO) 0.5 % (0.0-6.0); HEMATOCRIT 27 % (39-51); HEMOGLOBIN 8.8 g/dL (13.5-17.5); LYMPHOCYTES # (AUTO) 0.2 K/uL (0.8-4.8); LYMPHOCYTES % (AUTO) 6.4 % (20.0-44.0); MEAN CORPUSCULAR HEMOGLOBIN 32 PG (26.0-33.0); MEAN CORPUSCULAR HGB CONC 33 g/dl (31.0-36.0); MEAN CORPUSCULAR VOLUME 96 fL (80-96); MONOCYTES # (AUTO) 0.1 K/uL (0.1-1.30); MONOCYTES % (AUTO) 1.5 % (2.0-12.0); NEUTROPHILS # (AUTO) 3.4 K/uL (1.8-8.9); NEUTROPHILS % (AUTO) 91.5 % (43.0-81.0); RED BLOOD CELL COUNT(AUTO) 2.76 MIL/uL (4.5-6.0); RED CELL DISTRIBUTION WIDTH 23.9 % (11.5-15.0); WHITE BLOOD COUNT (AUTO) 3.7 K/uL (4.3-11.0)
--- NOTE | 2023-12-10 04:43 | NUR ---
agriculture department chair. am care given. remaining same vent settings tolerated well. sat 97%, no acute distress noted, nurse monitoring showing a, fib. condom patent urine draining. ngt feed on. turn and reposition q2h. robi continue to monitor vitals
[2023-12-10 04:46] LABS: D-DIMER 3.39 mg/L(FEU (0.17-0.50); INR 1.18 (0.91-1.10); PARTIAL THROMBOPLASTIN TIME 50.1 SEC (24.3-34.3); PROTHROMBIN TIME 12.4 SECS (9.2-11.1)
[2023-12-10 04:57] LABS: PLATELET COUNT (AUTO) 18 K/uL (150-450)
[2023-12-10 05:53] LABS: ANISOCYTOSIS 1+; BAND % (MANUAL) 2 % (0.0-5.0); BASOPHILS % (MANUAL) 0 % (0.0-2.0); EOSINOPHILS % (MANUAL) 0 % (0-4); LYMPHOCYTES % (MANUAL) 7 % (16-48); MONOCYTES % (MANUAL) 4 % (0-11.0); NEUTROPHILS % (MANUAL) 87 (42-76); PLATELET ESTIMATE DECREASED
[2023-12-10] MEDS: HYDROCORTISONE SOD SUCCINATE 100 MG/2 ML VIAL IV SCH (10:48)
--- NOTE | 2023-12-10 11:29 | NUR ---
fio2 increased to 100% due to 84% spo2. RN notified. Addendum: 12/10/23 at 1130 by SALAZAR NASH RT Amended: Links added.
--- NOTE | 2023-12-10 19:10 | NUR ---
DEPUTY COMMISSIONER OPENING NOTE RECEIVE PT IN BED WITH EYES CLOSED, SEDATED, INTUBATED 7.5 / 22 CM AT THE LIP WITH SETTINGS FIO2 60% TV 500 AC 16 PEEP 0 . EXT MELT ROOM OPERATOR READS A FIB 140.O2 SAT 97%. IV ACCESS HELADIO MIDLINE IN PLACE RUNNING LEVO @0.2 MCG/KG/MIN, RUI @ 3MCG/KG/MIN, PROPOFOL @ 25 MCG/KG/MIN. TUBE FEEDING JEVITY @ 60 ML/HR BILATERAL SOFT WRIST RESTRAINTS OFF. SAFETY MEASURES IN PLACE. BED IN LOW, LOCKED POSITION. CALL LIGHT WITHIN EASY REACH. WILL CONTINUE WITH PLAN OF CARE. Addendum: 12/11/23 at 0555 by ASHLEY LIAO RN CORRECTION: IV ON WENDY ML AND HELADIO ML. PT HAS PUREWICK IN PLACE ON CONTINUOS SUCTIONING.
[2023-12-11] VITALS (94 sets, daily range): BP systolic 78–121; BP diastolic 56–93; TEMP 97–97.2; O2SAT 91–100
--- NOTE | 2023-12-11 03:02 | NUR ---
RN note pt's HR has been afib in the 130s-160s. Candido Ramos SALESPERSON HANDBAGS notified. Per Candido Ramos NP, ordered stat EKG. Then amio load then drip. Will cont to monitor.
[2023-12-11] MEDS: AMIODARONE 150 MG in IV D5W 100 ML IV ONE (03:29)
[2023-12-11] MEDS: AMIODARONE 150 MG/3 ML VIAL IV ONE ×2 (03:36→03:51)
[2023-12-11] MEDS: AMIODARONE 450 MG in IV D5W 241 ML IV PRN (03:51)
[2023-12-11 04:01] LABS: HEMATOCRIT 27 % (39-51); HEMOGLOBIN 8.9 g/dL (13.5-17.5); LYMPHOCYTES # (AUTO) 0.2 K/uL (0.8-4.8); LYMPHOCYTES % (AUTO) 4.9 % (20.0-44.0); MEAN CORPUSCULAR HEMOGLOBIN 33 PG (26.0-33.0); MEAN CORPUSCULAR HGB CONC 33 g/dl (31.0-36.0); MEAN CORPUSCULAR VOLUME 99 fL (80-96); MONOCYTES # (AUTO) 0.1 K/uL (0.1-1.30); MONOCYTES % (AUTO) 2.4 % (2.0-12.0); NEUTROPHILS % (AUTO) 92.7 % (43.0-81.0); RED BLOOD CELL COUNT(AUTO) 2.71 MIL/uL (4.5-6.0); RED CELL DISTRIBUTION WIDTH 24.1 % (11.5-15.0); WHITE BLOOD COUNT (AUTO) 4.3 K/uL (4.3-11.0)
[2023-12-11 04:20] LABS: PLATELET COUNT (AUTO) 15 K/uL (150-450)
[2023-12-11 04:24] LABS: D-DIMER 3.2 mg/L(FEU (0.17-0.50); INR 1.08 (0.91-1.10); PARTIAL THROMBOPLASTIN TIME 48.6 SEC (24.3-34.3); PROTHROMBIN TIME 11.4 SECS (9.2-11.1)
[2023-12-11 04:38] LABS: ANISOCYTOSIS 1+; BAND % (MANUAL) 5 % (0.0-5.0); BASOPHILS % (MANUAL) 0 % (0.0-2.0); EOSINOPHILS % (MANUAL) 0 % (0-4); LYMPHOCYTES % (MANUAL) 5 % (16-48); MONOCYTES % (MANUAL) 2 % (0-11.0); NEUTROPHILS % (MANUAL) 88 (42-76); PLATELET ESTIMATE DECREASED
[2023-12-11 04:39] LABS: CALCIUM, SERUM 7.8 mg/dL (8.5-10.1); CARBON DIOXIDE 23 mmol/L (21-32); CHLORIDE 115 mmol/L (98-107); CREATININE 1.8 mg/dL (0.6-1.3); GLUCOSE 116 mg/dL (74-106); POTASSIUM 4.7 mmol/L (3.5-5.1); SODIUM SERUM 149 mmol/L (136-145); UREA NITROGEN, BLOOD 64 mg/dL (7-18)
--- NOTE | 2023-12-11 04:45 | NUR ---
rn note critical lab value for plt - 15. Candido Ramos GROUNDWATER MONITORING TECHNICIAN notified. Per Candido Ramos NP, follow dr. Wei recommendation.
--- NOTE | 2023-12-11 06:40 | NUR ---
PARADI OPERATOR closing note PT IN BED WITH EYES CLOSED, SEDATED, INTUBATED 7.5 / 22 CM AT THE LIP WITH SETTINGS FIO2 60% TV 500 AC 16 PEEP 0 . EXT HYDRO PNEUMATIC TESTER READS A FIB 113. O2 SAT 97%. IV ACCESS WENDY MIDLINE IN PLACE RUNNING LEVO @0.3 MCG/KG/MIN, RUI @ 3MCG/KG/MIN, PROPOFOL @ 25 MCG/KG/MIN. HELADIO MIDLINE RUNNING AMIO @ 33.3 ML/HR. TUBE FEEDING JEVITY @ 60 ML/HR. PUREWICK IN PLACE ON CONTINUOS SUCTIONING. SAFETY MEASURES IN PLACE. BED IN LOW, LOCKED POSITION. CALL LIGHT WITHIN EASY REACH. KEPT PT CLEAN AND DRY. ALL DUE MEDS GIVEN. WILL ENDORSE CARE TO AM SHIFT RN.
--- NOTE | 2023-12-11 07:15 | NUR ---
NATURAL RESOURCES PROFESSOR OPENING NOTE PT IN BED SEDATED, INTUBATED 7.5 / 26 CM AT THE LIP (PLACEMENT VERIFIED WITH CXR THIS AM), SATURATION 100%. AFIB ON THE MONITOR HR 100-110 BPM. IV ACCESS WENDY MIDLINE IN PLACE RUNNING LEVOPHED @ 0.3 MCG/KG/MIN, NEOSYNEPHRINE @ 3 MCG/KG/MIN, PROPOFOL @ 25 MCG/KG/MIN. HELADIO MIDLINE RUNNING AMIO @ 1 MG/MIN. NG TUBE IN THE LEFT NARE AT 67 CM. TUBE FEEDING JEVITY @ 60 ML/HR, GASTRIC RESIDUAL [address], NO URINE NOTED IN THE CANISTER. BILATERAL WOUNDS NOTED IN BUES. SAFETY MEASURES IN PLACE
[2023-12-11] MEDS: CEFEPIME 2 GM in IV D5W 100 ML IV SCH (08:06)
--- NOTE | 2023-12-11 09:26 | NUR ---
WELCOME HOSTESS NOTES HELD PLAVIX AND ASPIRIN DUE TO PLT 15, BLOOD TINGED ORAL SECRETIONS NOTED
[2023-12-11] MEDS: DIGOXIN INJ 0.5 MG/2 ML AMPUL IV SCH (12:49)
--- NOTE | 2023-12-11 18:50 | NUR ---
CIRCULAR DISTRIBUTOR CLOSING NOTE PT IN BED SEDATED, INTUBATED 7.5 / 26 CM AT THE LIP, SATURATION 96%. ST ON THE MONITOR HR 100-115 BPM. IV ACCESS WENDY MIDLINE IN PLACE RUNNING LEVOPHED @ 0.1 MCG/KG/MIN, NEOSYNEPHRINE @ 3 MCG/KG/MIN, PROPOFOL @ 15 MCG/KG/MIN. HELADIO MIDLINE SL. NG TUBE IN THE LEFT NARE AT 67 CM. TUBE FEEDING JEVITY @ 60 ML/HR. PUREWICK IN PLACE. WOUND CARE COMPLETED. SAFETY MEASURES IN PLACE
--- NOTE | 2023-12-11 20:46 | NUR ---
OSTEOPATHIC MEDICINE TEACHER. RECEIVED THE PT REST IN BED. ORALLY INTUBATED. SEDATED WITH PROPOFOL. ETT 7.5, LIP 24CMS, AC 16, TV 500,FIO2 60%,PEEP 5. SAT 95%, NO ACUTE DISTRESS NOTED. RADAR TESTER SHOWING NSR. IV RT AND LT UPPER ARM MID LINE. PROPOFOL ,LEVOPHED AND RUI RUNNING. NGT INTACT, JEVITY 60 ML/H. HOB ELEVATED. CONDOM CATH INTACT. URINE DRAINING. REYES ARM WEEPING . WILL CONTINUE TO MONITOR VITALS.
[2023-12-11] MEDS: PANTOPRAZOLE 40 MG/PACK PACK GT SCH (20:58)
[2023-12-12] VITALS (39 sets, daily range): BP systolic 53–98; BP diastolic 42–69; TEMP 97–98; O2SAT 59–93
--- NOTE | 2023-12-12 02:53 | NUR ---
horticultural specialty grower. am care given. remaining same vent settings tolerated well. sat 93%. no acute distress noted. youth nutritional monitor showing s tach. hob elevated.levo and olman running, turn and reposition q2h. wound picture taken. will continue to monitor vitals.
[2023-12-12 05:02] LABS: EOSINOPHILS % (AUTO) 0.1 % (0.0-6.0); HEMATOCRIT 29 % (39-51); LYMPHOCYTES # (AUTO) 0.2 K/uL (0.8-4.8); LYMPHOCYTES % (AUTO) 10.4 % (20.0-44.0); MEAN CORPUSCULAR HEMOGLOBIN 33 PG (26.0-33.0); MEAN CORPUSCULAR HGB CONC 31 g/dl (31.0-36.0); MEAN CORPUSCULAR VOLUME 105 fL (80-96); MONOCYTES % (AUTO) 1.4 % (2.0-12.0); NEUTROPHILS % (AUTO) 88.1 % (43.0-81.0); RED BLOOD CELL COUNT(AUTO) 2.77 MIL/uL (4.5-6.0); RED CELL DISTRIBUTION WIDTH 23.9 % (11.5-15.0); WHITE BLOOD COUNT (AUTO) 2.3 K/uL (4.3-11.0)
[2023-12-12 05:17] LABS: PLATELET COUNT (AUTO) 11 K/uL (150-450)
[2023-12-12 05:27] LABS: CARBON DIOXIDE 21 mmol/L (21-32); CHLORIDE 110 mmol/L (98-107); CREATININE 2.3 mg/dL (0.6-1.3); GLUCOSE 136 mg/dL (74-106); POTASSIUM 6.1 mmol/L (3.5-5.1); SODIUM SERUM 141 mmol/L (136-145); UREA NITROGEN, BLOOD 70 mg/dL (7-18)
[2023-12-12 05:32] LABS: D-DIMER 3.86 mg/L(FEU (0.17-0.50); INR 1.21 (0.91-1.10); PARTIAL THROMBOPLASTIN TIME 51.3 SEC (24.3-34.3); PROTHROMBIN TIME 12.7 SECS (9.2-11.1)
--- NOTE | 2023-12-12 06:51 | NUR ---
ENGINEER STEAM. PLATELETS 11. NOTIFIED PORCELAIN FINISH SPRAYER GUEST SERVICE AIDE TAYE. POTASSIUM 6.1. PLACED THE ORDER FOR REPEAT. URINE OUT PUT 300 ML. BLADDER SCAN DONE. ONLY ,100 ML URINE.WILL MONITOR
--- NOTE | 2023-12-12 07:10 | NUR ---
JOURNEYMAN APPRENTICE ELECTRICIANS OPENING NOTE PT IN BED SEDATED, INTUBATED 7.5 / 25 CM AT THE LIP, FIO2 AT 60 %, SATURATION 91%. NSR ON THE MONITOR HR 80S BPM. IV ACCESS WENDY MIDLINE IN PLACE RUNNING LEVOPHED @ 0.5 MCG/KG/MIN, NEOSYNEPHRINE @ 3 MCG/KG/MIN, PROPOFOL @ 20 MCG/KG/MIN. HELADIO MIDLINE SL. NG TUBE IN THE LEFT NARE AT 67 CM. TUBE FEEDING JEVITY @ 60 ML/HR. PUREWICK IN PLACE. NECROSIS NOTED ON THE TOES AND FINGERS BILATERALLY. SAFETY MEASURES IN PLACE
--- NOTE | 2023-12-12 08:00 | NUR ---
DIAMOND SIZER AND GRADER NOTES REPORTED POTASSIUM 7.[address] ANDREA, DR RHODES. DR ANDREA PLACED ORDERS FOR BUMEX DRIP AND KAYEXALATE PO. REPORTED TO DR ANDREA AND PT IS AT 0.5 MCG/KG/MIN OF LEVOPHED, BLOOD PRESSURE TRENDING DOWN, BIOETHIC COMMITTEE WAS DISCUSSED TO BE CARRIED OUT LATER TODAY. RECEIVED RESPONSE THAT BUMEX DRIP CAN BE STOPPED IN CASE BLOOD PRESSURE CONTINUES TO TREND DOWN
[2023-12-12] MEDS: BUMETANIDE INJ 4 MG in IV D5W 24 ML IV ONE (08:46)
[2023-12-12] MEDS: SODIUM POLYSTYRENE SULFONATE 15 G/60 ML BOTTLE PO ONE (08:56)
--- NOTE | 2023-12-12 10:15 | NUR ---
COMPUTER PROGRAMMER ANALYST NOTES PATIENT DESATURATED TO HIGH 70'S - LOW 80'S, PULSOX REPLACED, MULTIPLE LOCATIONS ATTEMPTED. RT CALLED, FIO2 MAXED OUT AT 100%
--- NOTE | 2023-12-12 11:00 | NUR ---
SIX HORSE HITCH DRIVER NOTES DISCONTINUED BUMEX DUE TO BLOOD PRESSURE TRENDING DOWN, CONDITIONAL ORDER RECEIVED FROM DR EMRE CORDERO
[2023-12-12 11:18] LABS: ANISOCYTOSIS 1+; BAND % (MANUAL) 6 % (0.0-5.0); BASOPHILS % (MANUAL) 0 % (0.0-2.0); EOSINOPHILS % (MANUAL) 0 % (0-4); LYMPHOCYTES % (MANUAL) 7 % (16-48); MONOCYTES % (MANUAL) 3 % (0-11.0); NEUTROPHILS % (MANUAL) 84 (42-76); PLATELET ESTIMATE DECREASED
[2023-12-12] MEDS ORDERED: MORPHINE SULFATE INJ 2 MG/ML DISP.SYRIN IV PRN (12:00)
[2023-12-12] MEDS ORDERED: LORAZEPAM INJ 2 MG/ML VIAL IV PRN (12:00)
--- NOTE | 2023-12-12 12:08 | NUR ---
KOSHER DIETARY SERVICE SUPERVISOR NOTES BIOETHICS COMMITTEE DECIDED TO PUT PT ON COMFORT CARE. RECEIVED ORDERS FROM DR PADRON FOR COMFORT CARE, MORPHINE IV 2 MG Q1H, ATIVAN IV 2 MG Q1H PRN FOR AGITATION
[2023-12-12] MEDS: MORPHINE SULFATE INJ 2 MG/ML DISP.SYRIN IV SCH (12:33)
--- NOTE | 2023-12-12 12:33 | NUR ---
BIOMASS FACILITATOR NOTES THE FIRST DOSE OF MORPHINE 2 MG IV Q1H GIVEN, COMFORT CARE ORDERS
--- NOTE | 2023-12-12 12:54 | NUR ---
CORPORATE LAW SPECIALIST NOTES PT EXTUBATED BY RT, STARTED ON NC
--- NOTE | 2023-12-12 13:25 | NUR ---
ICU/RN NO RESPIRATIONS,NO HEART TONES ,ASYSTOLE ON MONITOR ,NO PULSES.PUPILS FIX AND DILATED.UNRESPONSIVE.AT 13:22 PRONOUNCE BY ARSENIO/RN AND VALERY/RN.PIG MACHINE OPERATOR JESU NOTIFIED. NOTIFIED.ADMITTING JOE NOTIFIED.[facility] NOTIFIED. CASE # [id number] ТАТЬЯНА WEBSTER .PT HAS NO FAMILY .BODY WILL BE TRANSFERRED TO [facility].
--- NOTE | 2023-12-12 14:20 | NUR ---
HOSIERY BAGGER NOTES LINES REMOVED, POST MORTEM CARE PROVIDED. BELONGINGS SHEET VERIFIED, SIGNED. CALLED SECURITY FOR BODY HARDWARE ASSEMBLER. BELONGINGS SENT WITH THE PATIENT
[2023-12-13] MEDS ORDERED: CEFEPIME 2 GM in IV D5W 100 ML IV SCH (09:00)
== END 2023-12-12 15:11 | DRG 870 ==
LOC: ER 08:05 → TRANSITION 10:45 → TELE1 10:52 → MEDSG1 11-21 09:52 → ICU 11-25 18:25 → TELE1 11-28 18:15 → ICU 11-30 16:45 → TELE1 12-01 14:02 → TELE-TD 12-01 14:04 → TELE1 12-01 14:08 → MEDSG1 12-03 11:05 → ICU 12-06 20:29
PROVIDERS: ADMIT Nurse Practitioner Acute Care; ATTEND Internal Medicine
PROC: XW033E5 Introduction of Remdesivir Anti-infective into Peripheral Vein, Percutaneous Approach, New Technology Group 5 (ICD-10-PCS; principal; 2023-11-18)
PROC: 05HB33Z Insertion of Infusion Device into Right Basilic Vein, Percutaneous Approach (ICD-10-PCS; 2023-11-25)
PROC: 30233N1 Transfusion of Nonautologous Red Blood Cells into Peripheral Vein, Percutaneous Approach (ICD-10-PCS; 2023-11-26)
PROC: 30233R1 Transfusion of Nonautologous Platelets into Peripheral Vein, Percutaneous Approach (ICD-10-PCS; 2023-12-08)
PROC: 5A1955Z Respiratory Ventilation, Greater than 96 Consecutive Hours (ICD-10-PCS; 2023-12-08)
PROC: 0BH17EZ Insertion of Endotracheal Airway into Trachea, Via Natural or Artificial Opening (ICD-10-PCS; 2023-12-08)
PROC: 05H933Z Insertion of Infusion Device into Right Brachial Vein, Percutaneous Approach (ICD-10-PCS; 2023-12-08)
DX: A41.89 Other specified sepsis (principal); I50.31 Acute diastolic (congestive) heart failure; U07.1 COVID-19; J12.82 Pneumonia due to coronavirus disease 2019; J96.01 Acute respiratory failure with hypoxia; R65.21 Severe sepsis with septic shock; G92.8 Other toxic encephalopathy; J15.9 Unspecified bacterial pneumonia; E44.0 Moderate protein-calorie malnutrition; J44.0 Chronic obstructive pulmonary disease with (acute) lower respiratory infection; D62 Acute posthemorrhagic anemia; J90 Pleural effusion, not elsewhere classified; D61.818 Other pancytopenia; D68.9 Coagulation defect, unspecified; E87.1 Hypo-osmolality and hyponatremia; J98.11 Atelectasis; N17.9 Acute kidney failure, unspecified; R64 Cachexia; Z16.13 Resistance to carbapenem; Z51.5 Encounter for palliative care; Z66 Do not resuscitate; I25.10 Atherosclerotic heart disease of native coronary artery without angina pectoris; N40.0 Benign prostatic hyperplasia without lower urinary tract symptoms; I11.0 Hypertensive heart disease with heart failure; E78.5 Hyperlipidemia, unspecified; I25.2 Old myocardial infarction; I48.91 Unspecified atrial fibrillation; F03.90 Unspecified dementia, unspecified severity, without behavioral disturbance, psychotic disturbance, mood disturbance, and anxiety; S51.812A Laceration without foreign body of left forearm, initial encounter; X58.XXXA Exposure to other specified factors, initial encounter; Y92.9 Unspecified place or not applicable; Z87.440 Personal history of urinary (tract) infections; F32.9 Major depressive disorder, single episode, unspecified; Z98.61 Coronary angioplasty status; Z79.51 Long term (current) use of inhaled steroids; Z79.01 Long term (current) use of anticoagulants; Z79.02 Long term (current) use of antithrombotics/antiplatelets; Z79.82 Long term (current) use of aspirin; Z79.899 Other long term (current) drug therapy; Z78.9 Other specified health status; Z53.20 Procedure and treatment not carried out because of patient's decision for unspecified reasons; Z91.199 Patient's noncompliance with other medical treatment and regimen due to unspecified reason; D64.9 Anemia, unspecified; E80.6 Other disorders of bilirubin metabolism; M89.8X9 Other specified disorders of bone, unspecified site; F09 Unspecified mental disorder due to known physiological condition; L89.621 Pressure ulcer of left heel, stage 1; L89.611 Pressure ulcer of right heel, stage 1; D69.6 Thrombocytopenia, unspecified; E86.9 Volume depletion, unspecified; E87.5 Hyperkalemia; E87.6 Hypokalemia; E88.09 Other disorders of plasma-protein metabolism, not elsewhere classified; I27.20 Pulmonary hypertension, unspecified; J43.9 Emphysema, unspecified; K56.41 Fecal impaction; K57.30 Diverticulosis of large intestine without perforation or abscess without bleeding; K64.9 Unspecified hemorrhoids; Z87.891 Personal history of nicotine dependence
CPT/HCPCS: 31720; 36410; 36415; 36600; 71045-TC; 71250-TC; 71260-TC; 76700-TC; 76770-TC; 80048-TC; 80053-TC; 80076-TC; 80202-TC; 81001; 82040-TC; 82140-TC; 82272-TC; 82378; 82533; 82570-TC; 82607-TC; 82728-TC; 82784; 82803-TC; 82962-TC; 83540-TC; 83605-TC; 83735-TC; 83880; 84100-TC; 84132-TC; 84155; 84165; 84300-TC; 84439-TC; 84443-TC; 84478-TC; 84484-TC; 85025-TC; 85027-TC; 85045-TC; 85378-TC; 85396; 85610-TC; 85730-TC; 86140-TC; 86225; 86235; 86334; 86431-TC; 86706; 86803; 86850-TC; 87040-TC; 87081-TC; 87340; 87806; 92526; 92611-TC; 93307-TC; 93970-TC; 93971-TC; 94002-TC; 94003-TC; 94760-TC; 94762-TC; 94799-TC; 97110-TC; 97116-TC; 97530-TC; 97535-TC; A4216; A4217; A4223; A6253; A6403; A9563; G0378; J0282; J0456; J0692; J0696; J0713; J1100; J1160; J1630; J1650; J1720; J1940; J1956; J2048; J2060; J2185; J2270; J2470; J2765; J2916; J2919; J3370; J3371; J3475; J3480; J3490; J7030; J7040; J7050; J7060; P9016; P9034; P9047; Q9967